=== PATIENT | female | born 1940 | race Caucasian/White ===

== ENCOUNTER → 2016-08-23 | Outpatient (CLI) | payer MEDICARE, BC ==
[2016-08-23 14:19] LABS: Hemoglobin A1C 6.7 % (4.2-6.1)
[2016-08-23 14:21] LABS: Creatine Kinase 27 U/L (30-135)
[2016-08-23 15:27] LABS: Vitamin B12 >1000 pg/mL
== END | disposition home or self-care (01) ==
LOC: LABWHC1 13:18
PROVIDERS: ATTEND Psychiatry & Neurology Neurology
DX: E11.9 Type 2 diabetes mellitus without complications (principal); M62.81 Muscle weakness (generalized); R25.1 Tremor, unspecified
CPT/HCPCS: 36415; 82550; 82607; 83036; 84439; 84443

== ENCOUNTER → 2016-10-14 | Outpatient (CLI) | payer MEDICARE, BC | END | disposition home or self-care (01) | LOC: LABWHC1 06:58 | PROVIDERS: ATTEND Internal Medicine Endocrinology, Diabetes & Metabolism | DX: E27.40 Unspecified adrenocortical insufficiency (principal) | CPT/HCPCS: 36415; 82533 ==

== ENCOUNTER → 2016-10-22 | Outpatient (CLI) | payer MEDICARE, BC ==
[2016-10-22 12:10] LABS: ALT 27 U/L (9-52); AST 27 U/L (14-36); Alkaline Phosphatase 81 U/L (38-126); Anion Gap 12 mmol/L; Blood Urea Nitrogen 21 mg/dL (7-17); Calcium 10.4 mg/dL (8.4-10.2); Carbon Dioxide 22 mmol/L (22-30); Chloride 105 mmol/L (98-107); Cholesterol 252 mg/dL (<200); Glucose 109 mg/dL (74-99); HDL Cholesterol 50 mg/dL (40-60); Non-African American GFR(MDRD) >60 (>60 ml/min/1.73 sqM); Potassium 4.1 mmol/L (3.5-5.1); Sodium 139 mmol/L (137-145); Total Bilirubin 0.6 mg/dL (0.2-1.3); Total Protein 7.7 g/dL (6.3-8.2); Triglycerides 136 mg/dL (<150)
[2016-10-22 13:40] LABS: Hemoglobin A1C 6.6 % (4.2-6.1)
== END ==
LOC: LABWHC1 10:11
PROVIDERS: ATTEND Internal Medicine Endocrinology, Diabetes & Metabolism
DX: E11.65 Type 2 diabetes mellitus with hyperglycemia (principal); E78.00 Pure hypercholesterolemia, unspecified
CPT/HCPCS: 36415; 80053; 80061; 82043; 83036

== ENCOUNTER 2016-10-26 08:04 | Day surgery (SDC) | payer MEDICARE, BC ==
[2016-10-25 09:55] VITALS: BMI 22.4
[~2016-10-26 08:04] MED LIST: HYDROmorphone 1 MG/ML 1 ML SYRINGE IVP PRN; LACTATED RINGERS 1,000 ML IV SCH; MIDAZOLAM 2 MG/2 ML VIAL IV PRN
[2016-10-26] MEDS: PHENYLEPHRINE 10% OPHTH DROPS 5 ML BTL OP ONE ×3 (08:31→08:37)
[2016-10-26] MEDS: CYCLOPENTOLATE 1% OPHTH SOLN 2 ML BTL OP ONE ×2 (08:40→08:46)
[2016-10-26 08:41] VITALS: RESP 16; TEMP 98.1
[2016-10-26] MEDS: LIDOCAINE 1% 20 ML VIAL (10MG/ML) FOR IV START INTRADERMA PRN ×2 (08:45→08:54)
[2016-10-26] MEDS: FLURBIPROFEN 0.03% OPHTH DROPS 2.5 ML BTL OP ONE ×3 (08:49→08:55)
[2016-10-26 08:59] LABS: Glucose,Whole Blood 105 mg/dL (75-99)
[2016-10-26] MEDS ORDERED: PROPOFOL 10 MG/ML 20 ML VIAL IV ONE (09:26)
[2016-10-26] MEDS ORDERED: BALANCED SALT IRRIG SOLN COMB2 15 ML IRRIG.SOLN INTRAOCULA ONE (09:42)
[2016-10-26] MEDS ORDERED: HYALURONATE SODIUM INTRAOCULAR 1 EACH SYRINGE (10MG/ML) INTRAOCULA ONE (09:42)
[2016-10-26] MEDS ORDERED: EPINEPHrine (PF) 0.5 ML in BALANCED SALT IRRIG SOLN COMB2 500 ML IRRIGATION ONE (09:43)
--- NOTE | 2016-10-26 09:49 | P.OP ---
Date of Procedure: 10/26/16 Procedure(s) Performed: PREOPERATIVE DIAGNOSIS: Cataract, left eye. POSTOPERATIVE DIAGNOSIS: Cataract, left eye. OPERATION: Phacoemulsification cataract, left eye. DESCRIPTION OF PROCEDURE: The patient was taken to the preoperative holding area. Intravenous Propofol was given so as to bring about adequate sedation. The following mixture was given for local anesthesia: 5 mL of 2% lidocaine, 5 mL of 0.75% Marcaine, and 1 mL of Wydase. Approximately 4 mL was injected in the retrobulbar space of the surgical eye. Additional 1 mL was then directed to the temporal area of the surgical eye. This was performed to allow adequate neurological block of the facial muscles. The patient was revived and then taken into the operative room. The patient was prepped and draped in the usual sterile manner for the operative eye. A lid speculum was put into position. The conjunctiva was resected back from the limbus in the 12 o'clock position. Bleeding was controlled with electrocautery. A #69 blade was then used and a half-thickness scleral incision approximately 1-mm posterior to the limbus was made on bare sclera. This was shelved in the clear cornea using a crescent knife. Next a 15-degree blade was used to make a stab incision at the 3 o' clock position at the corneolimbal interface. Keratome blade was then used and the superior wound was extended into the anterior chamber. Viscoelastic was injected into the anterior chamber and to maintain its form. Next, a cystotome was used and a continuous anterior capsulotomy was made without difficulty. Hydrodissection using a blunt cannula and BSS was performed. Phaco probe was then employed and a groove extending from 12 to 6 o'clock in the lens was created. A Santi wand was used through the stab incision so as to perform a divide and conquer technique. Next an irrigation aspiration probe was utilized and any residual cortex was removed from the eye. Again, viscoelastic was injected into the anterior chamber. An Maynor posterior chamber lens implant was placed in the cartridge and injected into the anterior chamber without difficulty. The SinEnerVaultey hook was utilized to spin the lens into position and this was again performed without any difficulty. The irrigation and aspiration probe was again employed and any residual viscoelastic was removed from the eye. Then BSS was injected into the limbal stab incision and the anterior chamber re-inflated. The conjunctiva was reapproximated using electrocautery. One drop of 0.25% Timoptic was placed over the corneal along with TobraDex ophthalmic ointment. Two sterile patches and a [place] eye shield were taped into position. The patient was transported to the recovery room in stable condition. Pathology: none sent Condition: stable Disposition: same day
[2016-10-26] MEDS ORDERED: hydrALAZINE HCL 20 MG/ML 1 ML VIAL IV ONE ×2 (09:58→10:20)
[2016-10-26 10:39] VITALS: BP 178/82; PULSE 77
[2016-10-26] MEDS ORDERED: BUPIVACAINE (PF) 0.75% 5 ML, LIDOCAINE 4% (PF) 5 ML, HYALURONIDASE, HUMAN RECOMB 150 UNIT MISCELLANE ONE ×3 (23:00)
[2016-10-26] MEDS ORDERED: GENTAMICIN/PREDNISOL AC OPHTH OINT 3.5GM OPHTHALMIC ONE (23:00)
[2016-10-26] MEDS ORDERED: TIMOLOL 0.5% OPHTH SOLN (PF) 0.2 ML DROPERETTE OP ONE (23:00)
== END 2016-10-26 10:53 | disposition home or self-care (01) ==
LOC: OR 08:04
PROVIDERS: ATTEND Ophthalmology
DX: H26.9 Unspecified cataract (principal); E11.9 Type 2 diabetes mellitus without complications; Z79.84 Long term (current) use of oral hypoglycemic drugs; M35.00 Sjogren syndrome, unspecified; M19.90 Unspecified osteoarthritis, unspecified site; I10 Essential (primary) hypertension; M79.7 Fibromyalgia; K21.9 Gastro-esophageal reflux disease without esophagitis; Z79.899 Other long term (current) drug therapy; Z88.5 Allergy status to narcotic agent; Z88.0 Allergy status to penicillin; Z88.2 Allergy status to sulfonamides; Z88.8 Allergy status to other drugs, medicaments and biological substances
CPT/HCPCS: 66984; V2632; J2001; J3470; J0360; J0171; J2704

== ENCOUNTER 2016-12-07 09:30 | Day surgery (SDC) | payer MEDICARE, BC ==
[2016-12-03 15:37] VITALS: BMI 22.1
[~2016-12-07 09:30] MED LIST changes: +DEXAMETHASONE SOD PHOSPHATE 10 MG/ML 1 ML VIAL IV ONE; +LIDOCAINE 1% 20 ML VIAL (10MG/ML) FOR IV START INTRADERMA PRN; +ONDANSETRON 4 MG/2 ML VIAL IVP ONE; +SCOPOLAMINE 1.5MG/72HR PATCH TRANSDERM ONE
[2016-12-07] MEDS: PHENYLEPHRINE 10% OPHTH DROPS 5 ML BTL OP ONE ×3 (10:30→10:49)
[2016-12-07] MEDS: FLURBIPROFEN 0.03% OPHTH DROPS 2.5 ML BTL OP ONE ×3 (10:33→10:52)
[2016-12-07] MEDS: CYCLOPENTOLATE 1% OPHTH SOLN 2 ML BTL OP ONE ×3 (10:36→10:55)
[2016-12-07 10:40] VITALS: TEMP 97.9
[2016-12-07] MEDS ORDERED: PROPOFOL 10 MG/ML 20 ML VIAL IV ONE (11:00)
[2016-12-07 11:01] LABS: Glucose,Whole Blood 98 mg/dL (75-99)
[2016-12-07] MEDS ORDERED: EPINEPHrine (PF) 0.5 ML in BALANCED SALT IRRIG SOLN COMB2 500 ML IRRIGATION ONE (11:03)
[2016-12-07] MEDS ORDERED: BALANCED SALT IRRIG SOLN COMB2 15 ML IRRIG.SOLN IRRIGATION ONE (11:05)
[2016-12-07] MEDS ORDERED: HYALURONATE SODIUM INTRAOCULAR 1 EACH SYRINGE (10MG/ML) INTRAOCULA ONE (11:05)
--- NOTE | 2016-12-07 11:24 | P.OP ---
Date of Procedure: 12/07/16 Procedure(s) Performed: PREOPERATIVE DIAGNOSIS: Cataract, right eye. POSTOPERATIVE DIAGNOSIS: Cataract, right eye. OPERATION: Phacoemulsification cataract, right eye. DESCRIPTION OF PROCEDURE: The patient was taken to the preoperative holding area. Intravenous Propofol was given so as to bring about adequate sedation. The following mixture was given for local anesthesia: 5 mL of 2% lidocaine, 5 mL of 0.75% Marcaine, and 1 mL of Wydase. Approximately 4 mL was injected in the retrobulbar space of the surgical eye. Additional 1 mL was then directed to the temporal area of the surgical eye. This was performed to allow adequate neurological block of the facial muscles. The patient was revived and then taken into the operative room. The patient was prepped and draped in the usual sterile manner for the operative eye. A lid speculum was put into position. The conjunctiva was resected back from the limbus in the 12 o'clock position. Bleeding was controlled with electrocautery. A #69 blade was then used and a half-thickness scleral incision approximately 1-mm posterior to the limbus was made on bare sclera. This was shelved in the clear cornea using a crescent knife. Next a 15-degree blade was used to make a stab incision at the 3 o' clock position at the corneolimbal interface. Keratome blade was then used and the superior wound was extended into the anterior chamber. Viscoelastic was injected into the anterior chamber and to maintain its form. Next, a cystotome was used and a continuous anterior capsulotomy was made without difficulty. Hydrodissection using a blunt cannula and BSS was performed. Phaco probe was then employed and a groove extending from 12 to 6 o'clock in the lens was created. A Santi wand was used through the stab incision so as to perform a divide and conquer technique. Next an irrigation aspiration probe was utilized and any residual cortex was removed from the eye. Again, viscoelastic was injected into the anterior chamber. An Maynor posterior chamber lens implant was placed in the cartridge and injected into the anterior chamber without difficulty. The SinSimpleey hook was utilized to spin the lens into position and this was again performed without any difficulty. The irrigation and aspiration probe was again employed and any residual viscoelastic was removed from the eye. Then BSS was injected into the limbal stab incision and the anterior chamber re-inflated. The conjunctiva was reapproximated using electrocautery. One drop of 0.25% Timoptic was placed over the corneal along with TobraDex ophthalmic ointment. Two sterile patches and a [place] eye shield were taped into position. The patient was transported to the recovery room in stable condition. Pathology: none sent Condition: stable Disposition: same day
[2016-12-07] MEDS ORDERED: ENALAPRILAT 1.25 MG/ML 1 ML VIAL IVP ONE (11:52)
[2016-12-07] MEDS ORDERED: hydrALAZINE HCL 20 MG/ML 1 ML VIAL IVP ONE ×3 (11:53→12:23)
[2016-12-07 12:44] VITALS: BP 193/90; PULSE 82; RESP 18
[2016-12-07] MEDS ORDERED: BUPIVACAINE (PF) 0.75% 5 ML, LIDOCAINE 4% (PF) 5 ML, HYALURONIDASE, HUMAN RECOMB 150 UNIT MISCELLANE ONE ×3 (23:00)
[2016-12-07] MEDS ORDERED: GENTAMICIN/PREDNISOL AC OPHTH OINT 3.5GM OPHTHALMIC ONE (23:00)
[2016-12-07] MEDS ORDERED: TIMOLOL 0.5% OPHTH SOLN (PF) 0.2 ML DROPERETTE OP ONE (23:00)
== END 2016-12-07 13:20 | disposition home or self-care (01) ==
LOC: OR 09:30
PROVIDERS: ATTEND Ophthalmology
DX: H26.9 Unspecified cataract (principal); M35.00 Sjogren syndrome, unspecified; I10 Essential (primary) hypertension; F32.9 Major depressive disorder, single episode, unspecified; K21.9 Gastro-esophageal reflux disease without esophagitis; Z79.899 Other long term (current) drug therapy; Z88.1 Allergy status to other antibiotic agents; Z88.5 Allergy status to narcotic agent; Z88.0 Allergy status to penicillin; Z88.2 Allergy status to sulfonamides
CPT/HCPCS: 66984; V2632; J2001; J3470; J0360; J0171; J2704

== ENCOUNTER → 2017-04-07 | Outpatient (CLI) | payer MEDICARE, BC ==
--- NOTE | 2017-04-12 07:56 | MM ---
Reason for exam: screening (asymptomatic). Last mammogram was performed 1 year and 3 months ago. History: Patient is postmenopausal. Family history of breast cancer in daughter and breast cancer in aunt at age 49. Took estrogen for 18 years. Took progesterone for 18 years. Physical Findings: A clinical breast exam by your physician is recommended on an annual basis and results should be correlated with mammographic findings. MG Screening Mammo w CAD Bilateral CC and MLO view(s) were taken. Prior study comparison: January 12, 2016, bilateral MG 3d screening mammo w/cad. January 02, 2015, bilateral MG screening mammo w CAD. The breast tissue is heterogeneously dense. This may lower the sensitivity of mammography. Finding: There are typically benign vascular calcifications in the posterior position of the right breast. No significant changes in finding since January 12, 2016 and January 02, 2015. ASSESSMENT: Benign, BI-RAD 2 RECOMMENDATION: Routine screening mammogram of both breasts in 1 year.
== END | disposition home or self-care (01) ==
LOC: RADMAMWWP 13:52
PROVIDERS: ATTEND Family Medicine
DX: Z12.31 Encounter for screening mammogram for malignant neoplasm of breast (principal)

== ENCOUNTER 2017-09-20 11:46 | Emergency (ER) | payer MEDICARE, BC ==
[2017-09-20 11:59] VITALS: RESP 18; TEMP 97.1
[2017-09-20] MEDS ORDERED: FAMOTIDINE 20 MG/2 ML VIAL IV STA (12:20)
[2017-09-20] MEDS ORDERED: LIDOCAINE VISCOUS 2% 15 ML CUP MUCOUS MEM ONE (12:20)
[2017-09-20] MEDS ORDERED: MAG HYDROX/AL HYDROX/SIMETH 30 ML CUP PO PRN (12:20)
[2017-09-20] MEDS ORDERED: SUCRALFATE 1 GM TAB PO STA (12:20)
[2017-09-20] MEDS ORDERED: ONDANSETRON 4 MG/2 ML VIAL IVP STA (12:20)
--- NOTE | 2017-09-20 12:26 | ED ---
General Adult HPI - General Chief complaint: Nausea/Vomiting/Diarrhea Stated complaint: Nausea/weak Time Seen by Provider: 09/20/17 12:03 Source: patient, family Mode of arrival: wheelchair Limitations: no limitations - History of Present Illness Initial comments: Patient is a 77-year-old female presents with a chief complaint of nausea and vomiting. This is been going on for 2 days. Patient cannot identify any inciting incident. She is here with her daughter who states that the patient has had numerous medication changes over the last 6 months, mainly concerned with depression. Patient was taking citalopram, was weaned off and started Cymbalta. There is no aggravating or alleviating factors to the patient's abdominal pain. Timing is been intermittent. The patient does complain of epigastric pain. The pain is nonradiating and feels a burning type pain. - Related Data Home Medications Medication Instructions Recorded Confirmed Omeprazole [PriLOSEC] 20 mg PO DAILY 08/19/15 09/20/17 Glucosam/Anselmo-Msm1/C/Cristóbal/Bosw 1 tab PO DAILY 10/25/16 09/20/17 [Glucosamine-Chondroitin Tablet] metFORMIN HCL [Glucophage] 500 mg PO AC-SUPPER 10/25/16 09/20/17 Ascorbic Acid [Vitamin C] 1,000 mg PO DAILY 09/20/17 09/20/17 Atorvastatin [Lipitor] 20 mg PO HS 09/20/17 09/20/17 Cholecalciferol [Vitamin D3] 1,000 unit PO DAILY 09/20/17 09/20/17 Citalopram Hydrobromide [CeleXA] 20 mg PO Q4D 09/20/17 09/20/17 Cyanocobalamin (Vitamin B-12) 1,000 mcg PO DAILY 09/20/17 09/20/17 [Vitamin B-12] Docusate [Colace] 100 mg PO DAILY 09/20/17 09/20/17 L.acidoph,Paracasei, B.lactis 1 cap PO DAILY 09/20/17 09/20/17 [Probiotic] Lisinopril 40 mg PO DAILY 09/20/17 09/20/17 Lysine 500 mg PO DAILY 09/20/17 09/20/17 Melatonin 10 mg PO HS 09/20/17 09/20/17 Ondansetron [Zofran ODT] 8 mg PO Q8H PRN 09/20/17 09/20/17 Vitamin B Complex 1 cap PO DAILY 09/20/17 09/20/17 amLODIPine [Norvasc] 2.5 mg PO HS 09/20/17 09/20/17 Previous Rx's Medication Instructions Recorded Cephalexin [Keflex] 500 mg PO Q12HR #19 cap 09/20/17 Ondansetron Odt [Zofran Odt] 4 mg PO Q8HR PRN #20 tab 09/20/17 Allergies Allergy/AdvReac Type Severity Reaction Status Date / Time sulfamethoxazole Allergy Unknown Nausea & Verified 09/20/17 12:24 [From Bactrim] Vomiting trimethoprim [From Bactrim] Allergy Unknown Nausea & Verified 09/20/17 12:24 Vomiting Tetracyclines Allergy Nausea & Verified 09/20/17 12:24 Vomiting amoxicillin trihydrate AdvReac Nausea & Verified 09/20/17 12:24 [From Augmentin] Vomiting codeine AdvReac Nausea & Verified 09/20/17 12:24 Vomiting potassium clavulanate AdvReac Nausea & Verified 09/20/17 12:24 [From Augmentin] Vomiting tetracycline AdvReac Nausea & Verified 09/20/17 12:24 Vomiting Review of Systems ROS Statement: Those systems with pertinent positive or pertinent negative responses have been documented in the HPI. ROS Other: All systems not noted in ROS Statement are negative. Constitutional: Reports: chills Respiratory: Reports: cough Gastrointestinal: Reports: abdominal pain, nausea, vomiting, diarrhea Genitourinary: Reports: frequency Psychiatric: Reports: anxiety Past Medical History Past Medical History: Diabetes Mellitus, Eye Disorder, GERD/Reflux, Hypertension , Osteoarthritis (OA), Pulmonary Embolus (PE) Additional Past Medical History / Comment(s): Shogran's, tremors, hx of pneumonia or bronchitis in Aug 2016. Current right eye cataract. Thin skin that bruises very easily. Steroid use last in the Fall of 2015. History of Any Multi-Drug Resistant Organisms: None Reported Past Surgical History: Tubal Ligation Additional Past Surgical History / Comment(s): Left cataract surgery. Past Anesthesia/Blood Transfusion Reactions: Postoperative Nausea & Vomiting ( PONV) Past Psychological History: Anxiety Smoking Status: Never smoker Past Alcohol Use History: None Reported Past Drug Use History: None Reported - Past Family History Mother Family Medical History: Diabetes Mellitus, Hyperlipidemia, Myocardial Infarction ([place]) Father Family Medical History: Cancer Additional Family Medical History / Comment(s): SKIN CANCER Daughter(s) Family Medical History: Cancer Additional Family Medical History / Comment(s): Breast Cancer General Exam Limitations: no limitations General appearance: alert, in no apparent distress Head exam: Present: atraumatic, normocephalic Eye exam: Present: normal appearance ENT exam: Present: normal exam Respiratory exam: Present: normal lung sounds bilaterally, respiratory distress. Absent: wheezes Cardiovascular Exam: Present: regular rate, normal rhythm GI/Abdominal exam: Present: soft, tenderness (Epigastric tenderness on palpation ). Absent: distended Rectal exam: Present: deferred Extremities exam: Absent: pedal edema Back exam: Absent: CVA tenderness (R), CVA tenderness (L) Neurological exam: Present: alert, oriented X3 Psychiatric exam: Present: normal mood, anxious Skin exam: Present: warm, dry, intact Course Vital Signs 09/20/17 09/20/17 09/20/17 11:53 13:45 15:49 Temperature 97.1 F L Pulse Rate 90 82 74 Respiratory 18 18 18 Rate Blood Pressure 174/75 212/94 226/97 O2 Sat by Pulse 100 100 100 Oximetry Medical Decision Making - Medical Decision Making Patient presents with a chief complaint of nausea and vomiting 2 days. Patient complains also of epigastric burning pain. She denies chest pain or shortness of breath. Patient is however diabetic, hypertensive, and has high cholesterol. Patient will be evaluated with basic, abdominal, and cardiac labs. We'll send a urinalysis to rule out UTI as cause of nausea and vomiting. Patient medicated with GI cocktail, and Zofran. EKG performed at 1312 shows normal sinus rhythm with a rate of 77 bpm. EKG is otherwise nonspecific. 5:23 PM Lab evaluation of this patient is unremarkable. Troponins are negative 2. Urinalysis does offer evidence of infection, patient was given her first dose of Keflex in the emergency department. A urine culture was sent. On reevaluation, patient states she is feeling better. Her nausea has subsided and she is taking by mouth intake. Patient was given her home blood pressure medications. At this time, patient is stable for discharge. She was instructed to follow up with primary care in 1-2 days or return to the emergency department in 12-24 hours if her symptoms are worse. - Lab Data Result diagrams: 09/20/17 12:31 09/20/17 12:31 Lab Results 09/20/17 09/20/17 09/20/17 Range/Units 12:31 12:31 12:31 WBC 4.2 (3.8-10.6) k/uL RBC 4.20 (3.80-5.40) m/uL Hgb 11.6 (11.4-16.0) gm/dL Hct 36.8 (34.0-46.0) % MCV 87.7 (80.0-100.0) fL MCH 27.6 (25.0-35.0) pg MCHC 31.5 (31.0-37.0) g/dL RDW 13.5 (11.5-15.5) % Plt Count 329 (150-450) k/uL Neutrophils % 58 % Lymphocytes % 25 % Monocytes % 13 % Eosinophils % 1 % Basophils % 1 % Neutrophils # 2.5 (1.3-7.7) k/uL Lymphocytes # 1.0 (1.0-4.8) k/uL Monocytes # 0.5 (0-1.0) k/uL Eosinophils # 0.0 (0-0.7) k/uL Basophils # 0.0 (0-0.2) k/uL Hypochromasia Slight Sodium 138 (137-145) mmol/L Potassium 4.4 (3.5-5.1) mmol/L Chloride 103 (98-107) mmol/L Carbon Dioxide 21 L (22-30) mmol/L Anion Gap 14 mmol/L BUN 14 (7-17) mg/dL Creatinine 1.04 (0.52-1.04) mg/dL Est GFR (MDRD) Af Amer >60 (>60 ml/min/1.73 sqM) Est GFR (MDRD) Non-Af 52 (>60 ml/min/1.73 sqM) Glucose 159 H (74-99) mg/dL Calcium 11.2 H (8.4-10.2) mg/dL Total Bilirubin 0.5 (0.2-1.3) mg/dL AST 45 H (14-36) U/L ALT 42 (9-52) U/L Alkaline Phosphatase 133 H (38-126) U/L Troponin I <0.012 (0.000-0.034) ng/mL Total Protein 7.6 (6.3-8.2) g/dL Albumin 4.3 (3.5-5.0) g/dL Lipase 73 (23-300) U/L Urine Color Urine Appearance (Clear) Urine pH (5.0-8.0) Ur Specific [place] (1.001-1.035) Urine Protein (Negative) Urine Glucose (UA) (Negative) Urine Ketones (Negative) Urine Blood (Negative) Urine Nitrite (Negative) Urine Bilirubin (Negative) Urine Urobilinogen (<2.0) mg/dL Ur Leukocyte Esterase (Negative) Urine RBC (0-5) /hpf Urine WBC (0-5) /hpf Ur Squamous Epith Cells (0-4) /hpf Amorphous Sediment (None) /hpf Urine Bacteria (None) /hpf Hyaline Casts (0-2) /lpf Urine Mucus (None) /hpf Influenza Type A RNA (Not Detectd) Influenza Type B (PCR) (Not Detectd) 09/20/17 09/20/17 09/20/17 Range/Units 12:41 12:41 14:34 WBC (3.8-10.6) k/uL RBC (3.80-5.40) m/uL Hgb (11.4-16.0) gm/dL Hct (34.0-46.0) % MCV (80.0-100.0) fL MCH (25.0-35.0) pg MCHC (31.0-37.0) g/dL RDW (11.5-15.5) % Plt Count (150-450) k/uL Neutrophils % % Lymphocytes % % Monocytes % % Eosinophils % % Basophils % % Neutrophils # (1.3-7.7) k/uL Lymphocytes # (1.0-4.8) k/uL Monocytes # (0-1.0) k/uL Eosinophils # (0-0.7) k/uL Basophils # (0-0.2) k/uL Hypochromasia Sodium (137-145) mmol/L Potassium (3.5-5.1) mmol/L Chloride (98-107) mmol/L Carbon Dioxide (22-30) mmol/L Anion Gap mmol/L BUN (7-17) mg/dL Creatinine (0.52-1.04) mg/dL Est GFR (MDRD) Af Amer (>60 ml/min/1.73 sqM) Est GFR (MDRD) Non-Af (>60 ml/min/1.73 sqM) Glucose (74-99) mg/dL Calcium (8.4-10.2) mg/dL Total Bilirubin (0.2-1.3) mg/dL AST (14-36) U/L ALT (9-52) U/L Alkaline Phosphatase (38-126) U/L Troponin I 0.017 (0.000-0.034) ng/mL Total Protein (6.3-8.2) g/dL Albumin (3.5-5.0) g/dL Lipase (23-300) U/L Urine Color Yellow Urine Appearance Turbid H (Clear) Urine pH 7.5 (5.0-8.0) Ur Specific [place] 1.009 (1.001-1.035) Urine Protein 2+ H (Negative) Urine Glucose (UA) Negative (Negative) Urine Ketones 1+ H (Negative) Urine Blood Negative (Negative) Urine Nitrite Negative (Negative) Urine Bilirubin Negative (Negative) Urine Urobilinogen <2.0 (<2.0) mg/dL Ur Leukocyte Esterase Large H (Negative) Urine RBC 9 H (0-5) /hpf Urine WBC 46 H (0-5) /hpf Ur Squamous Epith Cells 1 (0-4) /hpf Amorphous Sediment Moderate H (None) /hpf Urine Bacteria Rare H (None) /hpf Hyaline Casts 26 H (0-2) /lpf Urine Mucus Rare H (None) /hpf Influenza Type A RNA Not Detected (Not Detectd) Influenza Type B (PCR) Not Detected (Not Detectd) Disposition Clinical Impression: Urinary tract infection, Nausea and vomiting Disposition: HOME SELF-CARE Condition: Good Instructions: Urinary Tract Infection in Women (ED) Prescriptions: Cephalexin [Keflex] 500 mg PO Q12HR #19 cap Ondansetron Odt [Zofran Odt] 4 mg PO Q8HR PRN #20 tab PRN Reason: Nausea Referrals: Ricardo Kirkland III, MD [Primary Care Provider] - 1-2 days
[2017-09-20 12:41] LABS: Basophils % (A) 1 %; Eosinophils % (A) 1 %; HCT 36.8 % (34.0-46.0); HGB 11.6 gm/dL (11.4-16.0); Hypochromasia Slight; Lymphocytes % (A) 25 %; MCH 27.6 pg (25.0-35.0); MCHC 31.5 g/dL (31.0-37.0); MCV 87.7 fL (80.0-100.0); Mean Platelet Volume 6.8; Monocytes # (A) 0.5 k/uL (0-1.0); Monocytes % (A) 13 %; Neutrophils # (A) 2.5 k/uL (1.3-7.7); Neutrophils % (A) 58 %; Platelet Count 329 k/uL (150-450); RDW 13.5 % (11.5-15.5); WBC 4.2 k/uL (3.8-10.6)
[2017-09-20 12:56] LABS: ALT 42 U/L (9-52); AST 45 U/L (14-36); Albumin 4.3 g/dL (3.5-5.0); Alkaline Phosphatase 133 U/L (38-126); Anion Gap 14 mmol/L; Blood Urea Nitrogen 14 mg/dL (7-17); Calcium 11.2 mg/dL (8.4-10.2); Carbon Dioxide 21 mmol/L (22-30); Chloride 103 mmol/L (98-107); Glucose 159 mg/dL (74-99); Lipase 73 U/L (23-300); Potassium 4.4 mmol/L (3.5-5.1); Sodium 138 mmol/L (137-145); Total Bilirubin 0.5 mg/dL (0.2-1.3); Total Protein 7.6 g/dL (6.3-8.2)
[2017-09-20 13:09] LABS: Amorphous Sediment,Urine Moderate /hpf; Appearance,Urine Turbid (Clear); Bacteria,Urine Rare /hpf; Bilirubin,Urine Negative (Negative); Blood,Urine Negative (Negative); Color,Urine Yellow; Glucose,Urine (UA) Negative (Negative); Hyaline Casts,Urine 26 /lpf (0-2); Ketones,Urine 1+ (Negative); Leukocyte Esterase,Urine Large (Negative); Mucus,Urine Rare /hpf; Nitrite,Urine Negative (Negative); PH, Urine 7.5 (5.0-8.0); Protein,Urine 2+ (Negative); RBC,Urine 9 /hpf (0-5); Specific Gravity,Urine 1.009 (1.001-1.035); Squamous Epithelial Cell,Urine 1 /hpf (0-4); Urobilinogen,Urine <2.0 mg/dL (<2.0); WBC,Urine 46 /hpf (0-5)
--- NOTE | 2017-09-20 13:12 | XR ---
EXAMINATION TYPE: XR chest 2V DATE OF EXAM: 09/20/2017 COMPARISON: Prior chest x-ray 08/19/2015 HISTORY: Pain, medicine reaction TECHNIQUE: Frontal and lateral views of the chest are obtained. FINDINGS: There is no focal air space opacity, pleural effusion, or pneumothorax seen. The cardiac silhouette size is within normal limits. The osseous structures are intact. Arthropathy noted in th e acromioclavicular joints. IMPRESSION: No acute cardiopulmonary process.
[2017-09-20] MEDS ORDERED: CEPHALEXIN 500 MG CAP PO STA (13:25)
[2017-09-20] MEDS ORDERED: amLODIPine 5 MG TAB PO STA (16:55)
[2017-09-20 17:59] VITALS: PULSE 82
[2017-09-20 18:09] VITALS: BP 193/91
== END 2017-09-20 18:09 | disposition home or self-care (01) ==
LOC: EC 11:46
DX: N39.0 Urinary tract infection, site not specified (principal); R11.2 Nausea with vomiting, unspecified; E11.9 Type 2 diabetes mellitus without complications; K21.9 Gastro-esophageal reflux disease without esophagitis; I10 Essential (primary) hypertension; F41.9 Anxiety disorder, unspecified; Z86.711 Personal history of pulmonary embolism; Z98.51 Tubal ligation status; Z79.84 Long term (current) use of oral hypoglycemic drugs; Z79.899 Other long term (current) drug therapy; Z88.0 Allergy status to penicillin; Z88.1 Allergy status to other antibiotic agents; Z88.2 Allergy status to sulfonamides; Z88.5 Allergy status to narcotic agent
CPT/HCPCS: 36415; 93005; 80053; 83690; 84484; 85025; 81001; 87086; 87502; 71046; 99284; 96374; 96375; J2405

== ENCOUNTER → 2018-12-27 | Outpatient (CLI) | payer MEDICARE ==
--- NOTE | 2018-12-27 17:16 | XR ---
EXAMINATION TYPE: XR chest 2V DATE OF EXAM: 12/27/2018 COMPARISON: 09/20/2017 HISTORY: Epigastric pain TECHNIQUE: Frontal and lateral views of the chest are obtained. FINDINGS: Heart and mediastinum are normal. Lungs are clear. Diaphragm is normal. Bony thorax appear s normal. IMPRESSION: Normal chest. No change.
== END ==
LOC: LABWHC1 16:29
PROVIDERS: ATTEND Nurse Practitioner Family
DX: R07.9 Chest pain, unspecified (principal)
CPT/HCPCS: 36415; 71046; 85379

== ENCOUNTER 2019-12-03 11:50 | Emergency (ER) | payer MEDICARE ==
--- NOTE | 2019-12-03 12:34 | ED ---
Lower Extremity Injury HPI - General Chief Complaint: Extremity Injury, Lower Stated Complaint: lt hip pain Time Seen by Provider: 12/03/19 12:00 Source: patient, family Mode of arrival: wheelchair Limitations: physical limitation - History of Present Illness Initial Comments: Patient is a 79-year-old female presenting to emergency Department with compl aints of left hip pain for the past 2-3 days. Patient states 4 days ago she was doing exercises at home which she does every now and again. Patient states the next day she felt a little soreness but was still able to ambulate without difficulty. Patient states the last 2 days she has been having increase in pain in her left hip going into her left gluteal muscle. She is also been needing help of a walker to walk to the restroom. Patient denies any falls or trauma. She denies any previous surgeries to her left hip or back. She denies any recent fever, chills. She has no other complaints at this time. - Related Data Home Medications Medication Instructions Recorded Confirmed Omeprazole [PriLOSEC] 20 mg PO DAILY 08/19/15 09/20/17 Glucosam/Anselmo-Msm1/C/Cristóbal/Bosw 1 tab PO DAILY 10/25/16 09/20/17 [Glucosamine-Chondroitin Tablet] metFORMIN HCL [Glucophage] 500 mg PO AC-SUPPER 10/25/16 09/20/17 Ascorbic Acid [Vitamin C] 1,000 mg PO DAILY 09/20/17 09/20/17 Atorvastatin [Lipitor] 20 mg PO HS 09/20/17 09/20/17 Cholecalciferol [Vitamin D3] 1,000 unit PO DAILY 09/20/17 09/20/17 Citalopram Hydrobromide [CeleXA] 20 mg PO Q4D 09/20/17 09/20/17 Cyanocobalamin (Vitamin B-12) 1,000 mcg PO DAILY 09/20/17 09/20/17 [Vitamin B-12] Docusate [Colace] 100 mg PO DAILY 09/20/17 09/20/17 L.acidoph,Paracasei, B.lactis 1 cap PO DAILY 09/20/17 09/20/17 [Probiotic] Lisinopril 40 mg PO DAILY 09/20/17 09/20/17 Lysine 500 mg PO DAILY 09/20/17 09/20/17 Melatonin 10 mg PO HS 09/20/17 09/20/17 Ondansetron [Zofran ODT] 8 mg PO Q8H PRN 09/20/17 09/20/17 Vitamin B Complex 1 cap PO DAILY 09/20/17 09/20/17 amLODIPine [Norvasc] 2.5 mg PO HS 09/20/17 09/20/17 Previous Rx's Medication Instructions Recorded Cephalexin [Keflex] 500 mg PO Q12HR #19 cap 09/20/17 Ondansetron Odt [Zofran Odt] 4 mg PO Q8HR PRN #20 tab 09/20/17 Allergies Allergy/AdvReac Type Severity Reaction Status Date / Time sulfamethoxazole Allergy Unknown Nausea & Verified 09/20/17 12:24 [From Bactrim] Vomiting trimethoprim [From Bactrim] Allergy Unknown Nausea & Verified 09/20/17 12:24 Vomiting Tetracyclines Allergy Nausea & Verified 09/20/17 12:24 Vomiting amoxicillin trihydrate AdvReac Nausea & Verified 09/20/17 12:24 [From Augmentin] Vomiting azithromycin [From Zithromax] AdvReac Nausea & Verified 12/03/19 11:59 Vomiting codeine AdvReac Nausea & Verified 09/20/17 12:24 Vomiting potassium clavulanate AdvReac Nausea & Verified 09/20/17 12:24 [From Augmentin] Vomiting tetracycline AdvReac Nausea & Verified 09/20/17 12:24 Vomiting Review of Systems ROS Statement: Those systems with pertinent positive or pertinent negative responses have been documented in the HPI. ROS Other: All systems not noted in ROS Statement are negative. Past Medical History Past Medical History: Diabetes Mellitus, Eye Disorder, GERD/Reflux, Hypertension, Osteoarthritis (OA), Pulmonary Embolus (PE) Additional Past Medical History / Comment(s): Shogran's, tremors, hx of pneumonia or bronchitis in Aug 2016. bilat eye cataract. Thin skin that bruises very easily. Steroid use last in the Fall of 2015. History of Any Multi-Drug Resistant Organisms: None Reported Past Surgical History: Tubal Ligation Additional Past Surgical History / Comment(s): bilat cataract surgery. Past Anesthesia/Blood Transfusion Reactions: Postoperative Nausea & Vomiting (PONV) Past Psychological History: Anxiety Smoking Status: Never smoker Past Alcohol Use History: None Reported Past Drug Use History: None Reported - Past Family History Mother Family Medical History: Diabetes Mellitus, Hyperlipidemia, Myocardial Infarction ([place]) Father Family Medical History: Cancer Additional Family Medical History / Comment(s): SKIN CANCER Daughter(s) Family Medical History: Cancer Additional Family Medical History / Comment(s): Breast Cancer General Exam - General Exam Comments Initial Comments: GENERAL: Well-appearing, well-nourished and in no acute distress. HEAD: Atraumatic, normocephalic. EYES: Pupils equal round and reactive to light, extraocular movements intact, sclera anicteric, conjunctiva are normal. ENT: TMs normal, nares patent, oropharynx clear without exudates. Moist mucous membranes. NECK: Normal range of motion, supple without lymphadenopathy or JVD. LUNGS: Breath sounds clear to auscultation bilaterally and equal. No wheezes rales or rhonchi. HEART: Regular rate and rhythm without murmurs, rubs or gallops. ABDOMEN: Soft, nontender, normoactive bowel sounds. No guarding, no rebound. No masses appreciated. : Deferred EXTREMITIES: Mild pain to palpation of the lateral aspect of the left hip and into the gluteal area. Patient has full range of motion of the left hip, mild pain with external rotation. No swelling or erythema of the left lower extremity. She is neurovascular intact. NEUROLOGICAL: Normal speech, normal gait. PSYCH: Normal mood, normal affect. SKIN: Warm, Dry, normal turgor, no rashes or lesions noted. Limitations: physical limitation Course Vital Signs 12/03/19 11:55 Temperature 98.4 F Pulse Rate 82 Respiratory 18 Rate Blood Pressure 181/96 O2 Sat by Pulse 98 Oximetry Medical Decision Making - Medical Decision Making Patient is a 79-year-old female presenting with left hip pain 2 days. She denies any falls or injuries. The pain started after doing some at home exercises. She is neurovascular intact, no signs of infection. X-rays reveal no acute fractures dislocations. I discussed with patient this is most likely muscle related and/or mild sciatica. Patient should use ice and/or heat to the area as well as gentle stretching. Patient will use a walker to help walk until she her symptoms have improved. Patient and patient's daughter is in agreement this plan of care. Return parameters were discussed with the patient and she verbalized understanding. Case discussed with Dr. Caro. Disposition Clinical Impression: Left hip pain, Left sided sciatica Disposition: HOME SELF-CARE Condition: Stable Instructions (If sedation given, give patient instructions): Hip Pain (ED) Additional Instructions: Please return to the Emergency Department if symptoms worsen or any other concerns. Use heat and/or ice to the area as well as gentle stretching. Use walker to aid with walking until symptoms improved. Follow-up with PCP if symptoms persist. Is patient prescribed a controlled substance at d/c from ED?: No Referrals: Ricardo Kirkland III, MD [Primary Care Provider] - 1-2 days
--- NOTE | 2019-12-03 13:02 | XR ---
EXAMINATION TYPE: XR Hip Complete LT DATE OF EXAM: 12/03/2019 COMPARISON: NONE HISTORY: 79-year-old female with pain TECHNIQUE: 2 views FINDINGS: Hip joint space is relatively maintained. Left-sided pelvic phlebolith. No acute fracture, subluxatio n, dislocation. Osteopenia. IMPRESSION: Osteopenia. No acute osseous abnormality seen.
[2019-12-03 13:55] VITALS: BP 182/95; PULSE 75; RESP 16; TEMP 98
== END 2019-12-03 13:58 | disposition home or self-care (01) ==
LOC: EC 11:50
DX: M54.32 Sciatica, left side (principal); E11.9 Type 2 diabetes mellitus without complications; K21.9 Gastro-esophageal reflux disease without esophagitis; I10 Essential (primary) hypertension; M19.90 Unspecified osteoarthritis, unspecified site; F41.9 Anxiety disorder, unspecified; Z79.84 Long term (current) use of oral hypoglycemic drugs; Z79.899 Other long term (current) drug therapy; Z79.1 Long term (current) use of non-steroidal anti-inflammatories (NSAID); Z88.2 Allergy status to sulfonamides; Z88.1 Allergy status to other antibiotic agents; Z88.0 Allergy status to penicillin; Z88.5 Allergy status to narcotic agent
CPT/HCPCS: 73502; 99283

== ENCOUNTER → 2020-03-26 | Outpatient (CLI) | payer MEDICARE ==
[2020-03-26 12:37] LABS: Basophils # (A) 0.1 k/uL (0-0.2); Basophils % (A) 1 %; Eosinophils # (A) 0.1 k/uL (0-0.7); Eosinophils % (A) 1 %; HCT 38.4 % (34.0-46.0); Hypochromasia Slight; Lymphocytes # (A) 1.5 k/uL (1.0-4.8); Lymphocytes % (A) 24 %; MCH 29.2 pg (25.0-35.0); MCHC 31.2 g/dL (31.0-37.0); MCV 93.7 fL (80.0-100.0); Mean Platelet Volume 8.5; Monocytes # (A) 0.5 k/uL (0-1.0); Monocytes % (A) 8 %; Neutrophils # (A) 4.3 k/uL (1.3-7.7); Neutrophils % (A) 65 %; Platelet Count 163 k/uL (150-450); RDW 13.4 % (11.5-15.5); WBC 6.6 k/uL (3.8-10.6)
[2020-03-26 12:48] LABS: Calcium 10.8 mg/dL (8.4-10.2); Potassium 5.1 mmol/L (3.5-5.1)
[2020-03-26 12:53] LABS: Appearance,Urine Cloudy (Clear); Bacteria,Urine Rare /hpf; Bilirubin,Urine Negative (Negative); Blood,Urine Negative (Negative); Color,Urine Yellow; Glucose,Urine (UA) Negative (Negative); Hyaline Casts,Urine 14 /lpf (0-2); Ketones,Urine Negative (Negative); Leukocyte Esterase,Urine Large (Negative); Mucus,Urine Rare /hpf; Nitrite,Urine Positive (Negative); PH, Urine 6.5 (5.0-8.0); Protein,Urine Trace (Negative); RBC,Urine 5 /hpf (0-5); Specific Gravity,Urine 1.019 (1.001-1.035); Squamous Epithelial Cell,Urine 2 /hpf (0-4); Urobilinogen,Urine <2.0 mg/dL (<2.0); WBC,Urine >182 /hpf (0-5)
[2020-03-26 12:57] LABS: Prothrombin Time 10.3 sec (9.0-12.0)
[2020-03-26 13:00] LABS: Partial Thromboplastin Time 21.8 sec (22.0-30.0)
--- NOTE | 2020-03-26 13:08 | XR ---
EXAMINATION TYPE: XR chest 2V DATE OF EXAM: 03/26/2020 COMPARISON: 12/27/2018 TECHNIQUE: PA and lateral views submitted. HISTORY: Pain FINDINGS: The lungs are clear and there is no pneumothorax, pleural effusion, or focal pneumonia. Heart size normal. No overt failure. Biapical pleural thickening. Hypertrophic and degenerative change of the sp ine. Hyperinflation suggests COPD. IMPRESSION: 1. No acute process.
== END | disposition home or self-care (01) ==
LOC: LABPAT 11:34
PROVIDERS: ATTEND Orthopaedic Surgery Orthopaedic Surgery of the Spine
DX: Z01.818 Encounter for other preprocedural examination (principal); M51.26 Other intervertebral disc displacement, lumbar region
CPT/HCPCS: 71046; 80048; 81001; 85025; 85610; 85730; 93005

== ENCOUNTER 2020-04-16 05:54 | Day surgery (SDC) | payer MEDICARE ==
[2020-04-08 14:20] VITALS: BMI 24.7
[~2020-04-16 05:54] MED LIST changes: -DEXAMETHASONE SOD PHOSPHATE 10 MG/ML 1 ML VIAL IV ONE; +FAMOTIDINE 20 MG/2 ML VIAL IV PRN; +HYDROmorphone 0.5 MG/0.5 ML SYRINGE IVP PRN; -HYDROmorphone 1 MG/ML 1 ML SYRINGE IVP PRN; -LACTATED RINGERS 1,000 ML IV SCH; +LIDOCAINE 1% (10MG/ML) FOR IV START INTRADERMA PRN; -LIDOCAINE 1% 20 ML VIAL (10MG/ML) FOR IV START INTRADERMA PRN; -MIDAZOLAM 2 MG/2 ML VIAL IV PRN; -ONDANSETRON 4 MG/2 ML VIAL IVP ONE; +ONDANSETRON 4 MG/2 ML VIAL IVP PRN; -SCOPOLAMINE 1.5MG/72HR PATCH TRANSDERM ONE; +ceFAZolin 1,000 MG in SODIUM CHLORIDE 0.9% IRRIGATIO 1,000 ML IRRIGATION ONE
[2020-04-16 06:30] LABS: Glucose,Whole Blood 132 mg/dL (75-99)
[2020-04-16] MEDS: LACTATED RINGERS 1,000 ML IV SCH ×3 (06:31→20:41)
[2020-04-16] MEDS ORDERED: LIDOCAINE 1%-EPI 1:100,000 20 ML VIAL SQ ONE ×4 (06:54→07:34)
[2020-04-16] MEDS ORDERED: BUPIVACAINE (PF) 0.5% 30 ML VIAL SQ ONE ×4 (06:54→07:34)
[2020-04-16] MEDS ORDERED: LIDOCAINE 1% INJ 10MG/ML (20 ML MDV) ONE (06:57)
[2020-04-16] MEDS ORDERED: SUCCINYLCHOLINE CHLORIDE 100 MG/5 ML SYR IV ONE (06:57)
[2020-04-16] MEDS ORDERED: ePHEDrine SULFATE/0.9% NACL/PF 50 MG/5 ML SYRINGE IV ONE (06:57)
[2020-04-16] MEDS ORDERED: fentaNYL (PF) 50 MCG/ML 2 ML AMP ONE (06:57)
[2020-04-16] MEDS ORDERED: MIDAZOLAM 2 MG/2 ML VIAL ONE (06:57)
[2020-04-16] MEDS ORDERED: ONDANSETRON 4 MG/2 ML VIAL ONE (06:57)
[2020-04-16] MEDS ORDERED: PROPOFOL 10 MG/ML 20 ML VIAL IV ONE (06:57)
[2020-04-16] MEDS ORDERED: GELATIN SPONGE,ABSORB (LARGE) 1 EACH SPONGE TOPICAL ONE ×2 (07:22→07:34)
[2020-04-16] MEDS ORDERED: methylPREDNISolone ACETATE 80 MG/ML 1 ML VIAL INJ ONE ×2 (07:22→08:15)
[2020-04-16] MEDS ORDERED: THROMBIN (BOVINE) 5,000 UNIT VIAL TOPICAL ONE ×2 (07:23→07:34)
[2020-04-16] MEDS ORDERED: LACTATED RINGERS 1,000 ML IV ONE (08:22)
[2020-04-16] MEDS ORDERED: IBUPROFEN 600 MG TAB PO PRN (08:41)
[2020-04-16] MEDS ORDERED: KETOROLAC 15 MG/ML 1 ML VIAL IVP PRN (08:41)
[2020-04-16] MEDS ORDERED: ONDANSETRON 4 MG/2 ML VIAL IVP PRN (08:41)
[2020-04-16] MEDS ORDERED: HYDROmorphone 0.5 MG/0.5 ML SYRINGE IVP PRN (08:41)
[2020-04-16] MEDS ORDERED: BENZOCAINE/MENTHOL LOZENG 1 EACH LOZENGE MUCOUS MEM PRN (08:41)
--- NOTE | 2020-04-16 08:49 | P.OP ---
Date of Procedure: 04/16/20 Preoperative Diagnosis: Herniated nucleus pulposis L3 4 with extruded fragment behind L3, left lower extremity radiculopathy, left lower extremity weakness, low back pain, degenerative disc disease Postoperative Diagnosis: same Anesthesia: GETA Pathology: none sent Condition: stable Disposition: PACU Description of Procedure: BRIEF OPERATIVE NOTE Preoperative Diagnosis:Herniated nucleus pulposis L3 4 with extruded fragment behind L3, left lower extremity radiculopathy, left lower extremity weakness, low back pain, degenerative disc disease Postoperative Diagnosis:Herniated nucleus pulposis L3 4 with extruded fragment behind L3, left lower extremity radiculopathy, left lower extremity weakness, low back pain, degenerative disc disease Procedure: Laminectomy and decompressionL3 4 Discectomy for decompressionL3 4 Surgeon: Dr. Antunez Service Trainer: Franklin Chris is present throughout the entire the case persistence during positioning, dissection, exposure, visualization, and all crucial elements of the case as well as closure. Anesthesia: General anesthesia Estimated blood loss:approximately 75 mL Complications: None apparent Components implanted:none Disposition: To recovery room in good stable condition. OPERATIVE INDICATIONS The patient has been having issues in their lower back and lower extremities. the patient was found have a very large disc herniation at L3 4 with an extruded fragment. The fragment had migrated cephalad behind L3 vertebrae on the left. She had severe pain at her back and her left lower extremity and was having weakness at her left lower extremity which correlated well with her imaging findings. The patient has been through conservative treatment.she is not having any benefit despite aggressive conservative treatment. She continue to have further disability and debility due to the disc herniation in her lower extremity issues. We discussed various treatment options including surgery, and the patient wishes to proceed with surgery We discussed the risk, patient's alternatives and benefits of surgery including but not limited to, risk of bleeding risk of infection, risk of need for further surgery, risk of decreased, loss of motion, loss of function, nerve damage, paralysis, heart attack, blindness and . OPERATIVE SUMMARY After discussing all the risks, patient alternatives and benefits at length, the patient elected to proceed with surgical intervention, signed informed consent, and presented for their procedure. The patient was [facility] and [facility] and the surgical site was marked. The patient was given antibiotics and brought to the operating room. The patient was sedated and intubated by anesthesia in standard fashion. The patient was positioned on to the operating room table in a prone position on the appropriate frame which was well-padded and well molded. We were careful to pad any bony prominences and pressure points. We were careful to maintain the patient's cervical spine and good neutral alignment and position throughout. The patient was prepped and draped in a normal standard fashion. An appropriate timeout and keystone protocol performed. We were able to proceed with the surgery. Fluoroscopy was utilized to establish the appropriate level. The local wound area was infiltrated with local anesthetic. An incision was made at the midline longitudinally over the appropriate levelsat L3 4. Dissection was taken down subcutaneously to the level of the fascia which was split midline. Dissection was taken over the lamina. Intraoperative fluoroscopy was taken which showed a marker at the appropriate levelof L3 4. With the appropriate level positively confirmed, we were able to proceed with laminectomy. The wound was copiously irrigated and suctioned dry as had been done periodically throughout the case. I performed a laminectomy at L3 4with a combination of curettes and a high-speed bur and Kerrison rongeurs. A small medial facetectomy was performed again further access. A partial foraminotomy was also performed. Portions of the ligamentum flavum were taken down to expose the dura and traversing nerve root. I was able to mobilize the traversing nerve root and gain access to the disc space. Note was made of obvious compression from the disc. there is significant disc that had extruded cephalad and I was able to expose this as well.Protecting the soft tissue structures, a small annulotomy was established. I was able to perform discectomy and remove any extruded disc fragments and any loose fragments from within the disc itself. There is some severedisc desiccation noted. I tried to preserve the disc annulus that appeared stable. There were no further extruded fragments noted. There is no evidence of dural tear or leak. Good hemostasis maintained. The wound was copiously irrigated and suctioned dry. Good decompression and discectomy was noted. We were able to proceed with closure. The fascia was closed for a watertight closure. The subcuticular tissue was closed with absorbable suture. The wound was cleaned and dried and dressed with the appropriate dressing. The drapes were broken down. The patient was gently rolled back onto their hospital bed being careful to maintain their cervical spine and good neutral alignment and position. They were woken up by anesthesia, extubated, and brought to the recovery room in good stable condition. The patient will be admitted to the hospital for observation and for appropriate postoperative care, medical management and monitoring. We will continue to follow them closely about the postoperative course.
[2020-04-16] MEDS ORDERED: LABETALOL SYRINGE 5 MG/ML IVP ONE (09:08)
[2020-04-16 09:52] LABS: Glucose,Whole Blood 160 mg/dL (75-99)
[2020-04-16] MEDS ORDERED: LORATADINE 10 MG TAB PO PRN (10:10)
[2020-04-16] MEDS ORDERED: MECLIZINE 12.5 MG TAB PO PRN (10:10)
[2020-04-16] MEDS: HYDROcodone/APAP 5-325MG 1 EACH TAB PO PRN ×2 (16:06→20:39)
[2020-04-16] MEDS: carvediloL 3.125 MG TAB PO SCH (16:06)
[2020-04-16] MEDS: SENNOSIDES-DOCUSATE SODIUM 1 EACH TAB PO SCH (16:06)
[2020-04-16] MEDS: SODIUM CHLORIDE 0.9% 1,000 ML IV SCH ×2 (16:07→23:18)
--- NOTE | 2020-04-16 16:58 | XR ---
EXAMINATION TYPE: XR lumbar spine 1V, FL guidance operating room DATE OF EXAM: 04/16/2020 CLINICAL HISTORY: L3-L4 laminectomy TECHNIQUE: Fluoroscopy. COMPARISON: None. FINDINGS: Fluoroscopic guidance was provided during procedure for performing physician. A total of 4 seconds of fluoroscopic time was utilized during the procedure and 1 spot images was acquired. Plea se see operative report for additional details. IMPRESSION: As Above.
[2020-04-16] MEDS ORDERED: amLODIPine 5 MG TAB PO SCH (21:00)
[2020-04-16] MEDS ORDERED: lisinopriL 20 MG TAB PO SCH (21:00)
[2020-04-16] MEDS ORDERED: ATORVASTATIN 20 MG TAB PO SCH (21:00)
[2020-04-16] MEDS ORDERED: CITALOPRAM HYDROBROMIDE 20 MG TAB PO SCH (21:00)
[2020-04-16] MEDS ORDERED: MELATONIN 5 MG TABLET PO SCH (21:00)
[2020-04-16] MEDS: BACLOFEN 10 MG TAB PO SCH (22:08)
[2020-04-16] MEDS: GABAPENTIN 300 MG CAP PO SCH (22:08)
[2020-04-17 06:13] VITALS: BP 136/67; PULSE 85; RESP 18; TEMP 98.2
[2020-04-17] MEDS ORDERED: PANTOPRAZOLE 40 MG TABLET PO SCH (07:30)
[2020-04-17] MEDS ORDERED: metFORMIN 500 MG TAB PO SCH (07:30)
[2020-04-17] MEDS: BACLOFEN 10 MG TAB PO SCH (07:41)
[2020-04-17] MEDS: carvediloL 3.125 MG TAB PO SCH (07:42)
[2020-04-17] MEDS: GABAPENTIN 300 MG CAP PO SCH (07:42)
[2020-04-17] MEDS: SENNOSIDES-DOCUSATE SODIUM 1 EACH TAB PO SCH (07:42)
[2020-04-17] MEDS: HYDROcodone/APAP 5-325MG 1 EACH TAB PO PRN (07:45)
--- NOTE | 2020-04-17 10:31 | P.DS ---
Providers Date of admission: 04/16/20 Attending physician: Jalil Antunez Primary care physician: [facility] Course: The patient presented on the day of admission as per their operative note. She had a large disc herniation at L3 4 with extruded fragment and severe left lower extremity radiculopathy with weakness. She feels her leg is significantly improved in terms of pain. She is very happy with her leg is feeling a far. Her back is sore as expected. Physical Exam The incision site is clean dry and intact. There is no erythema no drainage. There is no purulence no evidence of infection. There is no active drainage. Abdomen soft and nontender. Chest has good excursion with deep inspiration and expiration. The patient has active and passive range of motion intact at the upper and lower extremities. There is no acute change in neurologic status. She has sustained dorsal flexion plantarflexion. She does not have any new weakness. Hospital Course Postoperative day #1 status post laminectomy decompression with discectomy L3 4. 4 her disc herniation with lower extremity radiculopathy and weakness. The patient has been making good progress postoperatively. They have completed the prophylactic antibiotics without any signs or symptoms of infection. The patient has been able to advance their diet, and is tolerating diet adequately. The pain was initially controlled with IV medications and is now controlled appropriately with oral medications. She is happy with how her leg is feeling and it is impressed with how the pain is improved in the majority of her leg. The patient has been able to increase their mobilization. The patient has progressed appropriately. I think they are in good stable condition for discharge today. They will be sent home with appropriate prescriptions. I answered their questions to the best of my ability in a language that they can understand and they are agreeable with the plan. They will follow up as directed. Patient Condition at Discharge: Good Plan - Discharge Summary Discharge Rx Participant: No New Discharge Prescriptions: No Action metFORMIN HCL [Glucophage] 500 mg PO AC-BRKFST Citalopram Hydrobromide [CeleXA] 20 mg PO HS lisinopriL 40 mg PO HS Ondansetron [Zofran ODT] 8 mg PO Q8H PRN PRN Reason: Nausea Cholecalciferol [Vitamin D3] 3,000 unit PO DAILY Docusate [Colace] 300 mg PO DAILY L.acidoph,Paracasei, B.lactis [Probiotic] 1 cap PO BID Cyanocobalamin (Vitamin B-12) [Vitamin B-12] 1,000 mcg PO QAM Melatonin 20 mg PO HS Lansoprazole [Prevacid] 30 mg PO QAM amLODIPine [Norvasc] 5 mg PO HS Rosuvastatin [Crestor] 10 mg PO HS Meclizine [Antivert] 12.5 mg PO DAILY PRN PRN Reason: dizzyness Ubidecarenone [Co Q-10] 200 mg PO QAM carvediloL [Coreg] 3.125 mg PO BID Gabapentin [Neurontin] 300 mg PO BID HYDROcodone/APAP 5-325MG [[place] 5-325] 1 tab PO Q6HR PRN PRN Reason: Pain Baclofen 10 mg PO BID Turmeric/Turmeric Root Extract [Turmeric 450-50 mg Capsule] 1 each PO HS Cetirizine HCl [Zyrtec] 10 mg PO DAILY PRN PRN Reason: allergies Discharge Medication List metFORMIN HCL [Glucophage] 500 mg PO AC-BRKFST 10/25/16 [History] Cholecalciferol [Vitamin D3] 3,000 unit PO DAILY 09/20/17 [History] Citalopram Hydrobromide [CeleXA] 20 mg PO HS 09/20/17 [History] Cyanocobalamin (Vitamin B-12) [Vitamin B-12] 1,000 mcg PO QAM 09/20/17 [History] Docusate [Colace] 300 mg PO DAILY 09/20/17 [History] L.acidoph,Paracasei, B.lactis [Probiotic] 1 cap PO BID 09/20/17 [History] Melatonin 20 mg PO HS 09/20/17 [History] Ondansetron [Zofran ODT] 8 mg PO Q8H PRN 09/20/17 [History] lisinopriL 40 mg PO HS 09/20/17 [History] Baclofen 10 mg PO BID 03/27/20 [History] Gabapentin [Neurontin] 300 mg PO BID 03/27/20 [History] HYDROcodone/APAP 5-325MG [[place] 5-325] 1 tab PO Q6HR PRN 03/27/20 [History] Lansoprazole [Prevacid] 30 mg PO QAM 03/27/20 [History] Meclizine [Antivert] 12.5 mg PO DAILY PRN 03/27/20 [History] Rosuvastatin [Crestor] 10 mg PO HS 03/27/20 [History] Turmeric/Turmeric Root Extract [Turmeric 450-50 mg Capsule] 1 each PO HS 03/27/20 [History] Ubidecarenone [Co Q-10] 200 mg PO QAM 03/27/20 [History] amLODIPine [Norvasc] 5 mg PO HS 03/27/20 [History] carvediloL [Coreg] 3.125 mg PO BID 03/27/20 [History] Cetirizine HCl [Zyrtec] 10 mg PO DAILY PRN 04/08/20 [History]
[2020-04-17] MEDS: SODIUM CHLORIDE 0.9% 1,000 ML IV SCH (11:34)
== END 2020-04-17 13:24 | disposition home or self-care (01) ==
LOC: OR 05:54 → 6NMEDSUR 08:43 → OR 04-17 13:24
PROVIDERS: ATTEND Orthopaedic Surgery Orthopaedic Surgery of the Spine
DX: M51.16 Intervertebral disc disorders with radiculopathy, lumbar region (principal); I10 Essential (primary) hypertension; E78.5 Hyperlipidemia, unspecified; E11.9 Type 2 diabetes mellitus without complications; M35.00 Sjogren syndrome, unspecified; N28.9 Disorder of kidney and ureter, unspecified; H91.90 Unspecified hearing loss, unspecified ear; K21.9 Gastro-esophageal reflux disease without esophagitis; Z79.84 Long term (current) use of oral hypoglycemic drugs; Z88.5 Allergy status to narcotic agent; Z88.1 Allergy status to other antibiotic agents; Z88.2 Allergy status to sulfonamides; Z88.8 Allergy status to other drugs, medicaments and biological substances; Z79.899 Other long term (current) drug therapy; Z98.49 Cataract extraction status, unspecified eye; Z86.711 Personal history of pulmonary embolism; Z83.3 Family history of diabetes mellitus; Z82.49 Family history of ischemic heart disease and other diseases of the circulatory system
CPT/HCPCS: 97162; 72020; 63030; J2250; J1040; J0690 ×2; J2405; J2001; J3010; J1885; J0330; J2704; J1170

== ENCOUNTER 2025-01-31 08:14 | Emergency (ER) | payer MEDICARE ==
[2025-01-31 08:23] VITALS: RESP 18; TEMP 97.6
--- NOTE | 2025-01-31 08:54 | ED ---
General Adult HPI - General Chief complaint: Dizziness Stated complaint: Vertigo Time Seen by Provider: 01/31/25 08:26 Source: patient, family Mode of arrival: wheelchair - History of Present Illness Initial comments: Dictation was produced using [employer] dictation software. please excuse any grammatical, word or spelling errors. Chief Complaint: 84-year-old female with vertigo History of Present Illness: Patient 84-year-old female reports extensive history of vertigo. Patient states she has been having a recurrence of her vertigo symptoms for the last 2 to 3 days. States that her symptoms initially began on Tuesday. The following day it started to get worse. She states that it has been worse. She takes Antivert Vert medication however has been throwing up and unable to control her symptoms. Patient states that this is usual of her typical vertigo symptoms. Denies any pain complaints. Patient has had some episodes of nonbilious nonbloody emesis. The ROS documented in this emergency department record has been reviewed and confirmed by me. Those systems with pertinent positive or negative responses have been documented in the HPI. All other systems are other negative and/or noncontributory. - Related Data Home Medications Medication Instructions Recorded Confirmed metFORMIN HCL [Glucophage] 500 mg PO [id number] 10/25/16 04/16/20 Cholecalciferol [Vitamin D3] 3,000 unit PO DAILY 09/20/17 04/16/20 Citalopram Hydrobromide [CeleXA] 20 mg PO HS 09/20/17 04/16/20 Cyanocobalamin (Vitamin B-12) 1,000 mcg PO QAM 09/20/17 04/16/20 [Vitamin B-12] Docusate [Colace] 300 mg PO DAILY 09/20/17 04/16/20 L.acidoph,Paracasei, B.lactis 1 cap PO BID 09/20/17 04/16/20 [Probiotic] Melatonin [Melatonin Tr] 20 mg PO HS 09/20/17 04/16/20 Ondansetron [Zofran ODT] 8 mg PO Q8H PRN 09/20/17 04/16/20 lisinopriL 40 mg PO HS 09/20/17 04/16/20 Baclofen 10 mg PO BID 03/27/20 04/16/20 Gabapentin [Neurontin] 300 mg PO BID 03/27/20 04/16/20 HYDROcodone/APAP 5-325MG [[place] 1 tab PO Q6HR PRN 03/27/20 04/16/20 5-325] Lansoprazole [Prevacid] 30 mg PO QAM 03/27/20 04/16/20 Meclizine [Antivert] 12.5 mg PO DAILY PRN 03/27/20 04/16/20 Rosuvastatin [Crestor] 10 mg PO HS 03/27/20 04/16/20 Turmeric/Turmeric Root Extract 1 each PO HS 03/27/20 04/16/20 [Turmeric 450-50 mg Capsule] Ubidecarenone [Co Q-10] 200 mg PO QAM 03/27/20 04/16/20 amLODIPine [Norvasc] 5 mg PO HS 03/27/20 04/16/20 carvediloL [Coreg] 3.125 mg PO BID 03/27/20 04/16/20 Cetirizine HCl [Zyrtec] 10 mg PO DAILY PRN 04/08/20 04/16/20 Previous Rx's Medication Instructions Recorded Baclofen 10 mg PO TID PRN #90 tab 04/17/20 Allergies Allergy/AdvReac Type Severity Reaction Status Date / Time sulfamethoxazole Allergy Unknown Nausea & Verified 04/08/20 11:34 [From Bactrim] Vomiting trimethoprim [From Bactrim] Allergy Unknown Nausea & Verified 04/08/20 11:34 Vomiting Tetracyclines Allergy Nausea & Verified 04/08/20 11:34 Vomiting amoxicillin trihydrate AdvReac Nausea & Verified 04/08/20 11:34 [From Augmentin] Vomiting azithromycin [From Zithromax] AdvReac Nausea & Verified 04/08/20 11:34 Vomiting codeine AdvReac Nausea & Verified 04/08/20 11:34 Vomiting potassium clavulanate AdvReac Nausea & Verified 04/08/20 11:34 [From Augmentin] Vomiting tetracycline AdvReac Nausea & Verified 04/08/20 11:34 Vomiting tramadol AdvReac Nausea & Verified 04/08/20 11:34 Vomiting Review of Systems ROS Statement: Those systems with pertinent positive or pertinent negative responses have been documented in the HPI. ROS Other: All systems not noted in ROS Statement are negative. Past Medical History Past Medical History: Diabetes Mellitus, Eye Disorder, GERD/Reflux, Hypertension, Osteoarthritis (OA), Pulmonary Embolus (PE) Additional Past Medical History / Comment(s): Shogren's, tremors, hx of pneumonia or bronchitis in Aug 2016. bilat eye cataract. Thin skin that bruises very easily, finishing antibiotic today for recent UTI, low back pain down left leg especially w/standing History of Any Multi-Drug Resistant Organisms: None Reported Past Surgical History: Tubal Ligation Additional Past Surgical History / Comment(s): bilat cataract surgery. Past Anesthesia/Blood Transfusion Reactions: Postoperative Nausea & Vomiting (PONV) Past Psychological History: Anxiety Smoking Status: Never smoker Past Alcohol Use History: None Reported Past Drug Use History: None Reported - Past Family History Mother Family Medical History: Diabetes Mellitus, Hyperlipidemia, Myocardial Infarction ([place]) Father Family Medical History: Cancer Additional Family Medical History / Comment(s): SKIN CANCER Daughter(s) Family Medical History: Cancer Additional Family Medical History / Comment(s): Breast Cancer General Exam - General Exam Comments Initial Comments: PHYSICAL EXAM: General Impression: Alert and oriented x3, not in acute distress HEENT: Normocephalic atraumatic, extra-ocular movements intact, pupils equal and reactive to light bilaterally, mucous membranes moist. Cardiovascular: Heart regular rate and rhythm Chest: Able to complete full sentences, no retractions, no tachypnea Abdomen: abdomen soft, non-tender, non-distended, no organomegaly Musculoskeletal: Pulses present and equal in all extremities, no peripheral edema Motor: no focal deficits noted Neurological: CN II-XII grossly intact, no focal motor or sensory deficits noted Skin: Intact with no visualized rashes Psych: Normal affect and mood Course Vital Signs 01/31/25 01/31/25 01/31/25 08:18 09:54 11:12 Temperature 97.6 F Pulse Rate 94 80 87 Respiratory 18 18 18 Rate Blood Pressure 214/126 174/85 185/89 O2 Sat by Pulse 99 99 98 Oximetry EKG Findings - EKG Comments: EKG Findings:: My EKG interpretation: Ventricular rate75, sinus rhythm, WA 144, cures 85, QTc 417 . No WA prolongation, no QTC prolongation, no ST or T-wave changes noted. Overall, this EKG is unremarkable Medical Decision Making - Medical Decision Making Was pt. sent in by a medical professional or institution (, PA, WIRELESS NETWORK ENGINEER, urgent care, hospital, or senior living...) When possible be specific @ -No Did you speak to anyone other than the patient for history (EMS, parent, family, police, friend...)? What history was obtained from this source @ -No Did you review nursing and triage notes (agree or disagree)? Why? @ -I reviewed and agree with nursing and triage notes Were old charts reviewed (outside hosp., previous admission, EMS record, old EKG, old radiological studies, urgent care reports/EKG's, senior living records)? Report findings @ -No old charts were reviewed Differential Diagnosis (chest pain, altered mental status, abdominal pain women, abdominal pain men, vaginal bleeding, musculoskeletal, weakness, fever, dyspnea, syncope, headache, dizziness, GI bleed, back pain, seizure, CVA, palpatations, mental health)? @ -Differential Dizziness: Benign paroxysmal positional Vertigo, Meniere's disease, otitis media, acoustic neuroma, vertebrobasilar insufficiency, cerebellar stroke, encephalitis, hypovolemic, arrhythmia, coronary artery syndrome, anemia, this is not meant to be an all-inclusive list EKG interpreted by me (3pts min.). @ -See above X-rays interpreted by me (1pt min.). @ -None done CT interpreted by me (1pt min.). @ -None done U/S interpreted by me (1pt. min.). @ -None done What testing was considered but not performed or refused? (CT, X-rays, U/S, labs)? Why? @ -None What meds were considered but not given or refused? Why? @ -None Was smoking cessation discussed for >3mins.? @ -No Were there social determinants of health that impacted care today? How? (Homelessness, low income, unemployed, alcoholism, drug addiction, transportation, low edu. Level, literacy, decrease access to med. care, senior living, rehab)? @ -No Was there de-escalation of care discussed even if they declined (Discuss DNR or withdrawal of care, Hospice)? DNR status @ -No What co-morbidities impacted this encounter? (DM, HTN, Smoking, COPD, CAD, Cancer, CVA, ARF, Chemo, Hep., AIDS, mental health diagnosis, sleep apnea, morbid obesity)? @ -Vertigo Was patient admitted / discharged? Hospital course, mention meds given and route, prescriptions, significant lab abnormalities, going to OR and other pertinent info. @ -84-year-old female who reports extensive history of vertigo presents emergency department for vertigo ongoing for the last 3 to 4 days. Vital signs stable. Patient well-appearing at bedside. Patient has no otherwise focal neurologic issues. States it feels like her usual vertigo symptoms. Requesting a vertigo shot. Patient labs shows some slight acidosis. Patient given IV fluids for concerns of dehydration. Patient reevaluated after Reglan, Antivert and diazepam with improvement of symptoms. There is requested by patient to be discharged so that she can continue to rest at home despite advising patient to be monitored in the ER for reevaluation of symptoms. States that she will follow-up closely with her primary care doctor. Did you discuss the management of the patient with other professionals (professionals i.e. , PA, WIRELESS NETWORK ENGINEER, lab, RT, psych nurse, social research assistant, funeral home associate, teacher, disciplinary hearing officer, caser shoe parts)? Give summary @ -No Was critical care preformed (if so, how long)? @ -No Undiagnosed new problem with uncertain prognosis? @ -No Drug Therapy requiring intensive monitoring for toxicity (Heparin, Nitro, Insulin, Cardizem)? @ -No Were any procedures done? @ -No Diagnosis/symptom? Acute, or Chronic, or Acute on Chronic? Uncomplicated (without systemic symptoms) or Complicated (systemic symptoms)? @ -Vertigo Side effects of treatment? @ -No Exacerbation, Progression, or Severe Exacerbation? @ -No Poses a threat to life or bodily function? How? (Chest pain, [place], [place], pneumonia, PE, COPD, DKA, ARF, appy, cholecystitis, CVA, Diverticulitis, Homicidal, Suicidal, threat to staff... and all critical care pts) @ -yes - Lab Data Result diagrams: 01/31/25 09:05 01/31/25 09:05 Lab Results 01/31/25 01/31/25 Range/Units 09:05 09:05 WBC 8.34 (4.50-10.00) 10*3/uL RBC 4.72 (4.10-5.20) 10*6/uL Hgb 14.1 (12.0-15.0) g/dL Hct 43.0 (37.2-46.3) % MCV 91.1 (80.0-97.0) fL MCH 29.9 (27.0-32.0) pg MCHC 32.8 (32.0-37.0) g/dL Plt Count 206 (140-440) 10*3/uL MPV 11.1 (9.5-12.2) fL Immature Gran % (Auto) 0.7 % Neutrophils % 64.5 % Lymphocytes % 25.1 % Monocytes % 9.2 % Eosinophils % 0.0 % Basophils % 0.5 % Immature Gran # 0.06 H (0.00-0.04) 10*3/uL Neutrophils # 5.38 (1.80-7.70) 10*3/uL Lymphocytes # 2.09 (0.90-5.00) 10*3/uL Monocytes # 0.77 (0.20-1.00) 10*3/uL Eosinophils # 0.00 L (0.04-0.35) 10*3/uL Basophils # 0.04 (0.00-0.10) 10*3/uL Manual Slide Review Performed Immature Plt Fraction 3.1 (1.1-6.1) % RBC Morphology Normal Sodium 139 (137-145) mmol/L Potassium 4.2 (3.5-5.1) mmol/L Chloride 105 (98-107) mmol/L Carbon Dioxide 17 L (22-30) mmol/L Anion Gap 17 mmol/L BUN 19 H (7-17) mg/dL Creatinine 0.91 (0.52-1.04) mg/dL Est GFR (CKD-EPI)AfAm 68 (>60 ml/min/1.73 sqM) Est GFR (CKD-EPI)NonAf 59 (>60 ml/min/1.73 sqM) Glucose 226 H (74-99) mg/dL Calcium 11.6 H (8.4-10.2) mg/dL Magnesium 1.8 (1.6-2.3) mg/dL Total Bilirubin 0.7 (0.2-1.3) mg/dL AST 45 H (14-36) U/L ALT 32 (4-34) U/L Alkaline Phosphatase 129 H (38-126) U/L Total Protein 8.0 (6.3-8.2) g/dL Albumin 4.5 (3.5-5.0) g/dL Disposition Clinical Impression: Vertigo Disposition: HOME SELF-CARE Condition: Fair Instructions (If sedation given, give patient instructions): Dizziness (ED) Is patient prescribed a controlled substance at d/c from ED?: No Referrals: Ralf Suarez MD [Medical Doctor] - 1-2 days Time of Disposition: 11:39
[2025-01-31] MEDS: SODIUM CHLORIDE 0.9% 1,000 ML IV STA (09:25)
[2025-01-31 09:28] LABS: Basophils # (A) 0.04 10*3/uL (0.00-0.10); Basophils % (A) 0.5 %; HGB 14.1 g/dL (12.0-15.0); Immature Platelet Fraction 3.1 % (1.1-6.1); Lymphocytes # (A) 2.09 10*3/uL (0.90-5.00); Lymphocytes % (A) 25.1 %; MCH 29.9 pg (27.0-32.0); MCHC 32.8 g/dL (32.0-37.0); MCV 91.1 fL (80.0-97.0); Mean Platelet Volume 11.1 fL (9.5-12.2); Monocytes # (A) 0.77 10*3/uL (0.20-1.00); Monocytes % (A) 9.2 %; Neutrophils # (A) 5.38 10*3/uL (1.80-7.70); Neutrophils % (A) 64.5 %; RBC 4.72 10*6/uL (4.10-5.20); RDW 12.9 % (11.5-14.5); WBC 8.34 10*3/uL (4.50-10.00)
[2025-01-31] MEDS: METOCLOPRAMIDE 5 MG/ML 2 ML VIAL IVP STA (09:42)
[2025-01-31 09:49] LABS: ALT 32 U/L (4-34); African American GFR (CKD) 68 (>60 ml/min/1.73 sqM); Albumin 4.5 g/dL (3.5-5.0); Anion Gap 17 mmol/L; Blood Urea Nitrogen 19 mg/dL (7-17); Calcium 11.6 mg/dL (8.4-10.2); Carbon Dioxide 17 mmol/L (22-30); Chloride 105 mmol/L (98-107); Glucose 226 mg/dL (74-99); Non-African American GFR(CKD) 59 (>60 ml/min/1.73 sqM); Sodium 139 mmol/L (137-145); Total Bilirubin 0.7 mg/dL (0.2-1.3)
[2025-01-31 09:51] LABS: AST 45 U/L (14-36); Alkaline Phosphatase 129 U/L (38-126); Magnesium 1.8 mg/dL (1.6-2.3); Potassium 4.2 mmol/L (3.5-5.1)
[2025-01-31 10:16] LABS: Platelet Count 206 10*3/uL (140-440); RBC Morphology Normal
[2025-01-31] MEDS: MECLIZINE 12.5 MG TAB PO STA (10:44)
[2025-01-31 12:13] VITALS: BP 185/85; PULSE 80
== END 2025-01-31 12:13 | disposition home or self-care (01) ==
LOC: EC 08:14 → SUPCPDRO 08:14 → EC 12:13
DX: R42 Dizziness and giddiness (principal); Z88.1 Allergy status to other antibiotic agents; Z88.5 Allergy status to narcotic agent; Z88.0 Allergy status to penicillin; Z88.2 Allergy status to sulfonamides; Z88.8 Allergy status to other drugs, medicaments and biological substances
CPT/HCPCS: 36415; 93005; 80053; 83735; 85025; 99284; 96374; 96375; 96361; J2765; J3360

== ENCOUNTER 2025-02-02 11:55 | Inpatient (IN) | payer MEDICARE ==
[2025-02-02] MEDS: ONDANSETRON 4 MG/2 ML VIAL IVP STA (12:51)
[2025-02-02] MEDS: SODIUM CHLORIDE 0.9% 1,000 ML IV STA (12:52)
[2025-02-02 13:22] LABS: Basophils # (A) 0.06 10*3/uL (0.00-0.10); Basophils % (A) 0.8 %; Eosinophils # (A) 0.02 10*3/uL (0.04-0.35); Eosinophils % (A) 0.3 %; HCT 37.9 % (37.2-46.3); HGB 12.3 g/dL (12.0-15.0); Lymphocytes # (A) 2.74 10*3/uL (0.90-5.00); Lymphocytes % (A) 37.4 %; MCH 29.4 pg (27.0-32.0); MCHC 32.5 g/dL (32.0-37.0); MCV 90.5 fL (80.0-97.0); Monocytes # (A) 0.95 10*3/uL (0.20-1.00); Monocytes % (A) 13.0 %; Neutrophils # (A) 3.54 10*3/uL (1.80-7.70); Neutrophils % (A) 48.2 %; Platelet Count 227 10*3/uL (140-440); RBC 4.19 10*6/uL (4.10-5.20); RDW 12.7 % (11.5-14.5); WBC 7.33 10*3/uL (4.50-10.00)
[2025-02-02 13:37] LABS: ALT 40 U/L (4-34); AST 49 U/L (14-36); African American GFR (CKD) 86 (>60 ml/min/1.73 sqM); Albumin 3.7 g/dL (3.5-5.0); Alkaline Phosphatase 101 U/L (38-126); Anion Gap 13 mmol/L; Blood Urea Nitrogen 16 mg/dL (7-17); Calcium 10.2 mg/dL (8.4-10.2); Carbon Dioxide 19 mmol/L (22-30); Chloride 106 mmol/L (98-107); Glucose 139 mg/dL (74-99); Non-African American GFR(CKD) 75 (>60 ml/min/1.73 sqM); Potassium 3.3 mmol/L (3.5-5.1); Sodium 138 mmol/L (137-145); Total Protein 6.7 g/dL (6.3-8.2)
[2025-02-02 14:10] LABS: Bilirubin,Urine Negative (Negative); Blood,Urine Negative (Negative); Color,Urine Colorless; Glucose,Urine (UA) Negative (Negative); Ketones,Urine Trace (Negative); Leukocyte Esterase,Urine Large (Negative); Nitrite,Urine Negative (Negative); PH, Urine 7.0 (5.0-8.0); Protein,Urine Negative (Negative); RBC,Urine 2 /hpf (0-5); Specific Gravity,Urine 1.007 (1.001-1.035); Squamous Epithelial Cell,Urine <1 /hpf (0-4); Urobilinogen,Urine <2.0 mg/dL (<2.0); WBC,Urine 16 /hpf (0-5)
--- NOTE | 2025-02-02 14:56 | CT ---
EXAMINATION TYPE: CT brain wo con DATE OF EXAM: 02/02/2025 2:13 PM COMPARISON: None. CLINICAL INDICATION: Female, 84 years old with history of intractable dizziness, dizzy TECHNIQUE: Brain: Axial CT images of the brain were obtained with coronal and sagittal reformats created and rev iewed. Contrast used: None. Oral contrast used: None. CT DLP: 1094.5 mGycm, Automated exposure control for dose reduction was used. FINDINGS: Brain: Extra-axial spaces: No abnormal extra-axial fluid collections. Ventricular system: Dilatation in proportion to cerebral atrophy. Cerebral parenchyma: Cerebral atrophy. No acute intraparenchymal hemorrhage or mass effect. The villavicencio -white junction is well differentiated. Scattered hypoattenuating areas are seen within the white mat ter. Cerebellum: Unremarkable. Mass effect: No evidence of midline shift. Intracranial vasculature: unremarkable Soft tissues: Normal. Calvarium/osseous structures: No depressed skull fracture. Paranasal sinuses and mastoid air cells: Mild scattered paranasal sinus disease. Visualized orbits: Orbital contents are intact. IMPRESSION: 1. No acute intracranial process. 2. Nonspecific white matter changes, likely secondary to chronic small vessel ischemic disease. [facility], , 02/02/2025 2:54 PM
--- NOTE | 2025-02-02 14:56 | CT ---
EXAMINATION TYPE: CT angio head neck DATE OF EXAM: 02/02/2025 2:14 PM COMPARISON: CT head. CLINICAL INDICATION: Female, 84 years old with history of intractable dizziness; PHH, dizzy TECHNIQUE: Axially acquired helical CT angiogram of the head and neck was obtained with contrast. Axi al images are supplemented with 3D reconstructions and MIP images which were post-processed at an in dependent workstation. NASCET criteria used. Contrast used:65 mL of Isovue 370 with IV Contrast, Oral contrast used: None. CT DLP: 363.4 mGycm, Automated exposure control for dose reduction was used. FINDINGS: CTA HEAD: No evidence of acute intracranial hemorrhage, mass effect, or midline shift. The ventricles, sulci, a nd cisterns are unremarkable. Vertebral arteries: The vertebral arteries are patent. Vertebral artery dominance: Diminutive left intracranial portion of the vertebral artery with calcifi cation. The left vertebral artery may terminate as posterior inferior cerebellar artery. Basilar artery: The basilar artery is intact. The basilar artery bifurcation is normal. Internal Carotid arteries: The cervical, petrous, cavernous and supraclinoid segments are normal. RODNEY: Hypoplastic right A1 segment. Normal left A1 segment. Patent with no evidence of aneurysm. ACOM: Present without evidence of aneurysm. MCA: Patent with no evidence of aneurysm. ENGINEER STATION MAINLINE: Patent with no evidence of aneurysm. PCOM: Hypoplastic bilaterally. Dural sinuses: Patent. CTA NECK: Right Carotid System: The common carotid artery and external carotid artery are patent. The carotid bifurcation demonstrate s no evidence of hemodynamically significant stenosis. The remaining portions of the internal carotid artery demonstrate normal size without significant narrowing. Left Carotid System: The common carotid artery and external carotid artery are patent. The carotid bifurcation demonstrate s no evidence of hemodynamically significant stenosis. The remaining portions of the internal carotid artery demonstrate normal size without significant narrowing. Vertebral arteries are patent without evidence hemodynamically significant stenosis. There is a three-vessel aortic arch. The origins of the great vessels are patent. No evidence of hemo dynamically significant stenosis. IMPRESSION: 1. No evidence of dissection of the cervical internal carotid arteries or vertebral arteries. 2. No any evidence of significant stenosis at the carotid bifurcations. 3. No evidence of intracranial high-grade stenosis or intracranial aneurysm. 4. Hypoplastic right A1 segment. 5. Diminutive left intracranial vertebral artery. The left vertebral artery may terminate as the pos terior inferior cerebellar artery. [facility], , 02/02/2025 2:54 PM
[2025-02-02] MEDS ORDERED: ACETAMINOPHEN TAB 325 MG TAB PO PRN (15:34)
[2025-02-02] MEDS ORDERED: NALOXONE 0.4 MG/ML 1 ML VIAL IV PRN (15:34)
--- NOTE | 2025-02-02 15:34 | ED ---
General Adult HPI - General Chief complaint: Dizziness Stated complaint: Dizziness Time Seen by Provider: 02/02/25 12:16 Source: patient, family Mode of arrival: EMS Limitations: physical limitation - History of Present Illness Initial comments: 84-year-old female with past medical history of diabetes, hypertension who presents to the emergency department with continued vertiginous symptoms. Episode started on Tuesday. The patient was seen on in the emergency department. She was given meclizine and Valium and wanted to go home. Family at bedside states that she has not done well. She has not been eating or drinking. Has had numerous episodes of vomiting to where she can even take her medications. Patient has been bedbound which has led to significant weakness. Patient denies headache or visual changes. Does admit to a room spinning sensation. No lateralizing weakness. No history of stroke. No other alleviating, precipitating or modifying factors - Related Data Home Medications Medication Instructions Recorded Confirmed Docusate [Colace] 200 mg PO DAILY PRN 09/20/17 02/02/25 Melatonin [Melatonin Tr] 10 mg PO HS 09/20/17 02/02/25 lisinopriL 40 mg PO HS 09/20/17 02/02/25 carvediloL [Coreg] 3.125 mg PO BID 03/27/20 02/02/25 Cetirizine HCl [Zyrtec] 10 mg PO HS 04/08/20 02/02/25 Acetaminophen [Tylenol Arthritis] 1,300 mg PO Q6H PRN 02/02/25 02/02/25 Albuterol Inhaler [Ventolin Hfa 2 puff INHALATION RT-Q4H PRN 02/02/25 02/02/25 Inhaler] Cholecalciferol [Vitamin D3 (25 75 mcg PO DAILY 02/02/25 02/02/25 Mcg = 1000 Iu)] Cranberry Fruit Extract [Cranberry] 500 mg PO HS 02/02/25 02/02/25 Diclofenac Sodium Gel [Voltaren 1% 1 applic TOPICAL QID PRN 02/02/25 02/02/25 Gel] Famotidine 40 mg PO HS 02/02/25 02/02/25 Ibuprofen [Motrin Ib] 400 mg PO Q6H PRN 02/02/25 02/02/25 Lansoprazole [Prevacid 24Hr OTC] 30 mg PO DAILY 02/02/25 02/02/25 Magnesium Oxide [Mag-Ox] 400 mg PO HS 02/02/25 02/02/25 PARoxetine HCL 15 mg PO DAILY 02/02/25 02/02/25 Pseudoephedrine 12Hr [Sudafed 12 120 mg PO Q12HR PRN 02/02/25 02/02/25 Hour] Sennosides [Senokot] 8.6 mg PO DAILY PRN 02/02/25 02/02/25 Turmeric Root Extract [Turmeric] 750 mg PO DAILY 02/02/25 02/02/25 Vitamin C With Zinc 1,000mg/15mg 1 tab PO DAILY 02/02/25 02/02/25 bisacodyL [Dulcolax] 10 mg RECTAL DAILY PRN 02/02/25 02/02/25 guaiFENesin SYRUP 100MG/5ML 200 mg PO Q4H PRN 02/02/25 02/02/25 [Robitussin] guaiFENesin [Mucinex] 600 mg PO Q12H PRN 02/02/25 02/02/25 lidocaine HCL [Icy Hot Max] 1 applic TOPICAL QID PRN 02/02/25 02/02/25 metFORMIN HCL [metFORMIN HCL ER] 750 mg PO HS 02/02/25 02/02/25 Previous Rx's Medication Instructions Recorded Aspirin 81 mg PO DAILY #30 tab 02/07/25 Atorvastatin [Lipitor] 80 mg PO HS tab 02/07/25 Heparin Sodium,Porcine (1 ml) 5,000 unit SQ Q12HR each 02/07/25 [Heparin Sodium] INSULIN LISPRO (HumaLOG) [HumaLOG] 0 unit SQ ACHS each 02/07/25 Meclizine [Antivert] 25 mg PO TID tab 02/07/25 amLODIPine [Norvasc] 10 mg PO DAILY tab 02/07/25 Allergies Allergy/AdvReac Type Severity Reaction Status Date / Time sulfamethoxazole Allergy Unknown Nausea & Verified 02/02/25 17:10 [From Bactrim] Vomiting trimethoprim [From Bactrim] Allergy Unknown Nausea & Verified 02/02/25 17:10 Vomiting Tetracyclines Allergy Nausea & Verified 02/02/25 17:10 Vomiting amoxicillin trihydrate AdvReac Nausea & Verified 02/02/25 17:10 [From Augmentin] Vomiting azithromycin [From Zithromax] AdvReac Nausea & Verified 02/02/25 17:10 Vomiting codeine AdvReac Nausea & Verified 02/02/25 17:10 Vomiting potassium clavulanate AdvReac Nausea & Verified 02/02/25 17:10 [From Augmentin] Vomiting tetracycline AdvReac Nausea & Verified 02/02/25 17:10 Vomiting tramadol AdvReac Nausea & Verified 02/02/25 17:10 Vomiting Review of Systems ROS Statement: Those systems with pertinent positive or pertinent negative responses have been documented in the HPI. ROS Other: All systems not noted in ROS Statement are negative. Past Medical History Past Medical History: Diabetes Mellitus, Eye Disorder, GERD/Reflux, Hypertension, Osteoarthritis (OA), Pulmonary Embolus (PE) Additional Past Medical History / Comment(s): Shogren's, tremors, hx of pneumonia or bronchitis in Aug 2016. bilat eye cataract. Thin skin that bruises very easily, finishing antibiotic today for recent UTI, low back pain down left leg especially w/standing History of Any Multi-Drug Resistant Organisms: None Reported Past Surgical History: Back Surgery, Tubal Ligation Additional Past Surgical History / Comment(s): bilat cataract surgery. Past Anesthesia/Blood Transfusion Reactions: Postoperative Nausea & Vomiting (PONV) Past Psychological History: Anxiety Smoking Status: Never smoker Past Alcohol Use History: None Reported Past Drug Use History: None Reported - Past Family History Mother Family Medical History: Diabetes Mellitus, Hyperlipidemia, Myocardial Infarction (NE) Father Family Medical History: Cancer Additional Family Medical History / Comment(s): SKIN CANCER Daughter(s) Family Medical History: Cancer Additional Family Medical History / Comment(s): Breast Cancer General Exam Limitations: physical limitation General appearance: alert, in no apparent distress Head exam: Present: atraumatic, normocephalic, normal inspection Eye exam: Present: PERRL, EOMI, nystagmus. Absent: scleral icterus, conjunctival injection, periorbital swelling ENT exam: Present: normal exam, mucous membranes moist Neck exam: Present: normal inspection. Absent: tenderness, meningismus, lymphadenopathy Respiratory exam: Present: normal lung sounds bilaterally. Absent: respiratory distress, wheezes, rales, rhonchi, stridor Cardiovascular Exam: Present: regular rate, normal rhythm, normal heart sounds. Absent: systolic murmur, diastolic murmur, rubs, gallop, clicks GI/Abdominal exam: Present: soft, normal bowel sounds. Absent: distended, tenderness, guarding, rebound, rigid Extremities exam: Present: normal inspection, full ROM, normal capillary refill. Absent: tenderness, pedal edema, joint swelling, calf tenderness Back exam: Present: normal inspection Neurological exam: Present: alert, oriented X3, CN II-XII intact Psychiatric exam: Present: normal affect, normal mood Skin exam: Present: warm, dry, intact, normal color. Absent: rash Course Vital Signs 02/02/25 02/02/25 02/02/25 11:58 13:00 14:06 Temperature 98.4 F Pulse Rate 75 72 74 Respiratory 16 16 16 Rate Blood Pressure 182/87 195/91 189/88 O2 Sat by Pulse 98 98 97 Oximetry 02/02/25 02/02/25 15:00 17:20 Temperature 96.8 F L Pulse Rate 74 78 Respiratory 18 16 Rate Blood Pressure 181/90 183/99 O2 Sat by Pulse 97 97 Oximetry Medical Decision Making - Medical Decision Making Was pt. sent in by a medical professional or institution (, PA, LEAD CONSULTANT, urgent care, hospital, or residential...) When possible be specific @ -No Did you speak to anyone other than the patient for history (EMS, parent, family, police, friend...)? What history was obtained from this source @ -With the son for history Did you review nursing and triage notes (agree or disagree)? Why? @ -I reviewed and agree with nursing and triage notes Were old charts reviewed (outside hosp., previous admission, EMS record, old EKG, old radiological studies, urgent care reports/EKG's, residential records)? Report findings @ -I reviewed the chart from where patient was seen for the same complaint Differential Diagnosis (chest pain, altered mental status, abdominal pain women, abdominal pain men, vaginal bleeding, weakness, fever, dyspnea, syncope, headache, dizziness, GI bleed, back pain, seizure, CVA, palpatations, mental health, musculoskeletal)? @ -Differential Dizziness: Benign paroxysmal positional Vertigo, Meniere's disease, otitis media, acoustic neuroma, vertebrobasilar insufficiency, cerebellar stroke, encephalitis, h ypovolemic, arrhythmia, coronary artery syndrome, anemia, this is not meant to be an all-inclusive list EKG interpreted by me (3pts min.). @ -Yes and demonstrates sinus rhythm with a rate of 77. DE interval 130. QRS 90. QTc of 430. No acute ST segment elevations or depressions X-rays interpreted by me (1pt min.). @ -Yes which demonstrates no acute process CT interpreted by me (1pt min.). @ -Yes which demonstrates no acute process U/S interpreted by me (1pt. min.). @ -None done What testing was considered but not performed or refused? (CT, X-rays, U/S, labs)? Why? @ -None What meds were considered but not given or refused? Why? @ -None Did you discuss the management of the patient with other professionals (professionals i.e. , PA, LEAD CONSULTANT, lab, RT, psych nurse, outreach and education social worker, cheese supervisor, teacher, supervisor dog license officer, case supervisor)? Give summary @ -Spoke with Dr. Chaudhari for the admission Was smoking cessation discussed for >3mins.? @ -No Was critical care preformed (if so, how long)? @ -No Were there social determinants of health that impacted care today? How? (Homelessness, low income, unemployed, alcoholism, drug addiction, transportation, low edu. Level, literacy, decrease access to med. care, usp, rehab)? @ -No Was there de-escalation of care discussed even if they declined (Discuss DNR or withdrawal of care, Hospice)? DNR status @ -No What co-morbidities impacted this encounter? (DM, HTN, Smoking, COPD, CAD, Cancer, CVA, ARF, Chemo, Hep., AIDS, mental health diagnosis, sleep apnea, morbid obesity)? @ -None Was patient admitted / discharged? Hospital course, mention meds given and route, prescriptions, significant lab abnormalities, going to OR and other pertinent info. @ -Upon arrival patient seen and evaluated in hallway 20. Thorough history and physical exam was performed. IV access was established. Patient was given 1 L normal saline, 4 of Zofran and Valium. Laboratory studies are conducted. She is sent for CT which demonstrates no acute process. Due to persistent intractable vertigo I did recommend admission for neurology consultation. Patient was agreeable to this. Spoke with Dr. Chaudhari for the admission Undiagnosed new problem with uncertain prognosis? @ -No Drug Therapy requiring intensive monitoring for toxicity (Heparin, Nitro, Insul in, Cardizem)? @ -No Were any procedures done? @ -No Diagnosis/symptom? @ -Intractable vertigo, nausea and vomiting Acute, or Chronic, or Acute on Chronic? @ -Acute Uncomplicated (without systemic symptoms) or Complicated (systemic symptoms)? @ -Complicated Side effects of treatment? @ -No Exacerbation, Progression, or Severe Exacerbation? @ -No Poses a threat to life or bodily function? How? (Chest pain, [place], NE, pneumonia, PE, COPD, DKA, ARF, appy, cholecystitis, CVA, Diverticulitis, Homicidal, Suicidal, threat to staff... and all critical care pts) @ -Assess patient has possible strokelike symptoms - Lab Data Result diagrams: 02/06/25 04:38 02/06/25 04:38 Lab Results 02/02/25 02/02/25 02/02/25 Range/Units 13:15 13:15 13:15 WBC 7.33 (4.50-10.00) 10*3/uL RBC 4.19 (4.10-5.20) 10*6/uL Hgb 12.3 (12.0-15.0) g/dL Hct 37.9 (37.2-46.3) % MCV 90.5 (80.0-97.0) fL MCH 29.4 (27.0-32.0) pg MCHC 32.5 (32.0-37.0) g/dL Plt Count 227 (140-440) 10*3/uL MPV 10.7 (9.5-12.2) fL Immature Gran % (Auto) 0.3 % Neutrophils % 48.2 % Lymphocytes % 37.4 % Monocytes % 13.0 % Eosinophils % 0.3 % Basophils % 0.8 % Immature Gran # 0.02 (0.00-0.04) 10*3/uL Neutrophils # 3.54 (1.80-7.70) 10*3/uL Lymphocytes # 2.74 (0.90-5.00) 10*3/uL Monocytes # 0.95 (0.20-1.00) 10*3/uL Eosinophils # 0.02 L (0.04-0.35) 10*3/uL Basophils # 0.06 (0.00-0.10) 10*3/uL Sodium 138 (137-145) mmol/L Potassium 3.3 L (3.5-5.1) mmol/L Chloride 106 (98-107) mmol/L Carbon Dioxide 19 L (22-30) mmol/L Anion Gap 13 mmol/L BUN 16 (7-17) mg/dL Creatinine 0.75 (0.52-1.04) mg/dL Est GFR (CKD-EPI)AfAm 86 (>60 ml/min/1.73 sqM) Est GFR (CKD-EPI)NonAf 75 (>60 ml/min/1.73 sqM) Glucose 139 H (74-99) mg/dL Estimated Ave Glu mg/dL mg/dL Hemoglobin A1c (<=6.0) % Plasma Lactic Acid Allen 1.1 (0.7-2.0) mmol/L Calcium 10.2 (8.4-10.2) mg/dL Total Bilirubin 0.5 (0.2-1.3) mg/dL AST 49 H (14-36) U/L ALT 40 H (4-34) U/L Alkaline Phosphatase 101 (38-126) U/L Troponin I (0.000-0.034) ng/mL Total Protein 6.7 (6.3-8.2) g/dL Albumin 3.7 (3.5-5.0) g/dL Urine Color Urine Appearance (Clear) Urine pH (5.0-8.0) Ur Specific [place] (1.001-1.035) Urine Protein (Negative) Urine Glucose (UA) (Negative) Urine Ketones (Negative) Urine Blood (Negative) Urine Nitrite (Negative) Urine Bilirubin (Negative) Urine Urobilinogen (<2.0) mg/dL Ur Leukocyte Esterase (Negative) Urine RBC (0-5) /hpf Urine WBC (0-5) /hpf Ur Squamous Epith Cells (0-4) /hpf 02/02/25 02/02/25 02/02/25 Range/Units 13:15 13:15 13:50 WBC (4.50-10.00) 10*3/uL RBC (4.10-5.20) 10*6/uL Hgb (12.0-15.0) g/dL Hct (37.2-46.3) % MCV (80.0-97.0) fL MCH (27.0-32.0) pg MCHC (32.0-37.0) g/dL Plt Count (140-440) 10*3/uL MPV (9.5-12.2) fL Immature Gran % (Auto) % Neutrophils % % Lymphocytes % % Monocytes % % Eosinophils % % Basophils % % Immature Gran # (0.00-0.04) 10*3/uL Neutrophils # (1.80-7.70) 10*3/uL Lymphocytes # (0.90-5.00) 10*3/uL Monocytes # (0.20-1.00) 10*3/uL Eosinophils # (0.04-0.35) 10*3/uL Basophils # (0.00-0.10) 10*3/uL Sodium (137-145) mmol/L Potassium (3.5-5.1) mmol/L Chloride (98-107) mmol/L Carbon Dioxide (22-30) mmol/L Anion Gap mmol/L BUN (7-17) mg/dL Creatinine (0.52-1.04) mg/dL Est GFR (CKD-EPI)AfAm (>60 ml/min/1.73 sqM) Est GFR (CKD-EPI)NonAf (>60 ml/min/1.73 sqM) Glucose (74-99) mg/dL Estimated Ave Glu mg/dL 197 mg/dL Hemoglobin A1c 8.5 H (<=6.0) % Plasma Lactic Acid Allen (0.7-2.0) mmol/L Calcium (8.4-10.2) mg/dL Total Bilirubin (0.2-1.3) mg/dL AST (14-36) U/L ALT (4-34) U/L Alkaline Phosphatase (38-126) U/L Troponin I <0.012 (0.000-0.034) ng/mL Total Protein (6.3-8.2) g/dL Albumin (3.5-5.0) g/dL Urine Color Colorless Urine Appearance Clear (Clear) Urine pH 7.0 (5.0-8.0) Ur Specific [place] 1.007 (1.001-1.035) Urine Protein Negative (Negative) Urine Glucose (UA) Negative (Negative) Urine Ketones Trace H (Negative) Urine Blood Negative (Negative) Urine Nitrite Negative (Negative) Urine Bilirubin Negative (Negative) Urine Urobilinogen <2.0 (<2.0) mg/dL Ur Leukocyte Esterase Large H (Negative) Urine RBC 2 (0-5) /hpf Urine WBC 16 H (0-5) /hpf Ur Squamous Epith Cells <1 (0-4) /hpf Disposition Clinical Impression: Vertigo, Weakness, Nausea & vomiting Disposition: ADMITTED IP TO THIS HOSP Condition: Stable Is patient prescribed a controlled substance at d/c from ED?: No Time of Disposition: 15:34 Decision to Admit Reason: Admit from EC Decision Date: 02/02/25 Decision Time: 15:34
[2025-02-02] MEDS ORDERED: MECLIZINE 25 MG TAB PO PRN (15:36)
[2025-02-02] MEDS: SODIUM CHLORIDE 0.9% 1,000 ML IV SCH (15:57)
[2025-02-02] MEDS ORDERED: DEXTROSE 50% SYRINGE 50 ML IVP PRN ×2 (16:30)
[2025-02-02] MEDS ORDERED: diphenhydrAMINE 50 MG/ML 1 ML VIAL IVP PRN (16:31)
[2025-02-02] MEDS: PANTOPRAZOLE 40 MG/10 ML VIAL IVP SCH (18:54)
[2025-02-02] MEDS: INSULIN LISPRO (HumaLOG) 100 UNIT/ML 10 mL VL SQ SCH (18:56)
[2025-02-02] MEDS: MECLIZINE 25 MG TAB PO SCH (19:00)
[2025-02-02 19:55] LABS: Glucose,Whole Blood 111 mg/dL (70-110)
[2025-02-02] MEDS: HEPARIN SODIUM,PORCINE 5,000 UNIT/ML 1 ML VIAL SQ SCH (21:23)
[2025-02-03] MEDS: hydrALAZINE HCL 20 MG/ML 1 ML VIAL IVP PRN (01:16)
--- NOTE | 2025-02-03 04:05 | HP ---
HISTORY AND PHYSICAL CHIEF COMPLAINT: Dizziness. HISTORY OF PRESENT ILLNESS: This is an 84-year-old woman with a past medical history of dizziness for several years, had increasing dizziness and vomiting for the last 3-4 days. The patient is unable to keep anything down. The patient is hard of hearing. The patient came to [facility], was admitted for evaluation and there is no history of any fever, rigors, chills. Stroke workup is being initiated. Cultures are negative so far. PAST MEDICAL HISTORY: History of chronic dizziness. Rest of the chart was also reviewed. HOME MEDICATIONS: Reviewed include metformin, doses and rest of medications are noted, not confirmed yet. ALLERGIES: Reviewed include Bactrim, rest of allergies noted. FAMILY HISTORY: History of diabetes mellitus type 2. SOCIAL HISTORY: No history of smoking or alcohol. REVIEW OF SYSTEMS: Fourteen-point review of systems is negative except as mentioned earlier. PHYSICAL EXAMINATION: VITAL SIGNS: Pulse 74, blood pressure n respirations 18. HEENT: Conjunctivae normal. ABDOMEN: Soft, nontender. LEGS: No edema. No swelling. NERVOUS SYSTEM: No nystagmus. Moves all 4. No focal deficits. LABORATORY DATA: Reviewed. ASSESSMENT: 1. Intractable dizziness possible exacerbation, rule out acute stroke. 2. Dehydration. 3. Hypertension, accelerated. 4. Diabetes mellitus, type 2. 5. Degenerative joint disease. 6. History of pulmonary embolism. 7. Sjogren syndrome. RECOMMENDATION: This is an 84-year-old woman presented with multiple complex medical issues. We will monitor the patient closely. Recommend to continue with IV fluids, symptomatic treatment. Guarded prognosis because of multiple complex medical issues. Further recommendations to follow. See orders for details. MMODL / IJN: [id number] / MTDD
[2025-02-03 05:57] LABS: Glucose,Whole Blood 120 mg/dL (70-110)
--- NOTE | 2025-02-03 09:49 | US ---
EXAMINATION TYPE: US carotid duplex BILAT DATE OF EXAM: 02/03/2025 COMPARISON: NONE CLINICAL INDICATION: Female, 84 years old with history of stroke; Hx HTN, DM, and new onset difficult y speaking Additional History: .... TECHNIQUE: Grayscale, color Doppler and spectral Doppler evaluation of the bilateral carotid systems and vertebral arteries. Indirect Doppler criteria was utilized. FINDINGS: EXAM MEASUREMENTS: RIGHT: Peak Systolic Velocity (PSV) cm/sec ----- Right CCA: 88 ----- Right ICA: 106 ----- Right ECA: 151 ICA/CCA ratio: 1.2 RIGHT: End Diastole cm/sec ----- Right CCA: 8 ----- Right ICA: 11 ----- Right ECA: 0 LEFT: Peak Systolic Velocity (PSV) cm/sec ----- Left CCA: 92 ----- Left ICA: 118 ----- Left ECA: 121 ICA/CCA ratio: 1.3 LEFT: End Diastole cm/sec ----- Left CCA: 13 ----- Left ICA: 20 ----- Left ECA: 8 VERTEBRALS (direction of flow): Right Vertebral: Antegrade Left Vertebral: Antegrade Rhythm: Normal DIRECTOR FOOD SAFETY NOTES: No intimal thickening, plaque, or elevated velocities seen. Color Doppler imaging shows patency with blood flow throughout the carotid artery. Spectral waveforms are within normal limits. IMPRESSION: Right: Less than 50% stenosis of the carotid bifurcation. Left: Less than 50% stenosis of the carotid bifurcation. Criteria for Assigning % of Stenosis / Diameter reduction (Estimation based on the indirect measurements of the internal carotid artery velocities (ICA PSV). 1. Normal (no stenosis)=ICA PSV < 180 cm/s: ratio < 2.0: ICA EDV<40 cm/s. 2. Less than 50% stenosis=ICA PSV < 180 cm/s: ratio < 2.0: ICA EDV<40 cm/s. 3. 50 to 69% stenosis=ICA PSV of 180 to 230 cm/s: ration 2.0 ? 4.0: ICA EDV 40-100 cm/s. PSV 125-180 cm/sec and ICA/CCA PSV Ratio ? 2.0 is also consistent with 50-69% stenosis 4. Greater than 70% stenosis to near occlusion= ICA PSV > 230 cm/s: ratio > 4.0: ICA EDV > 100 cm/s. 5. Near occlusion= ICA PSV velocities may be low or undetectable: variable ratio and ICA EDV. 6. Total occlusion=unable to detect flow. [facility], , 02/03/2025 9:47 AM
[2025-02-03 09:58] LABS: Basophils # (A) 0.07 X 10*3/uL (0.00-0.10); Basophils % (A) 1.0 %; Eosinophils # (A) 0.04 X 10*3/uL (0.04-0.35); Eosinophils % (A) 0.6 %; HCT 39.5 % (37.2-46.3); HGB 12.7 g/dL (12.0-15.0); Immature Grans, Automated 0.40 %; Lymphocytes # (A) 3.12 X 10*3/uL (0.90-5.00); Lymphocytes % (A) 44.8 %; MCH 28.9 pg (27.0-32.0); MCHC 32.2 g/dL (32.0-37.0); MCV 90.0 FL (80.0-97.0); Monocytes # (A) 1.05 X 10*3/uL (0.20-1.00); Monocytes % (A) 15.1 %; NRBC Per 100 WBC 0 X 10*3/uL (0.00-0.01); Neutrophils # (A) 2.65 X 10*3/uL (1.80-7.70); Neutrophils % (A) 38.1 %; Platelet Count 253 X 10*3/uL (140-440); RBC 4.39 X 10*6/uL (4.10-5.20); RDW 12.9 % (11.5-14.5); WBC 6.96 X 10*3/uL (4.50-10.00)
[2025-02-03 10:36] LABS: ALT 39 U/L (8-44); AST 44 U/L (13-35); Albumin 3.8 g/dL (3.8-4.9); Albumin/Globulin Ratio 1.31 Ratio (1.60-3.17); Alkaline Phosphatase 106 U/L (41-126); Anion Gap 14.70 mmol/L (4.00-12.00); BUN/Creat Ratio 12.67 Ratio (12.00-20.00); Blood Urea Nitrogen 11.4 mg/dL (9.0-27.0); Calcium 9.9 mg/dL (8.7-10.3); Carbon Dioxide 18.3 mmol/L (21.6-31.8); Chloride 108 mmol/L (96-109); Globulin 2.9 g/dL (1.6-3.3); Glucose 125 mg/dL (70-110); Potassium 3.2 mmol/L (3.5-5.5); Sodium 141 mmol/L (135-145); Total Protein 6.7 g/dL (6.2-8.2)
[2025-02-03] MEDS: ONDANSETRON 4 MG/2 ML VIAL IVP PRN (10:56)
[2025-02-03 12:22] LABS: Glucose,Whole Blood 122 mg/dL (70-110)
[2025-02-03] MEDS ORDERED: Potassium Replacement Protocol 1 EACH MISC MISCELLANE PRN (12:40)
[2025-02-03] MEDS: POTASSIUM CHLORIDE ER 20 MEQ TAB.ER PO SCH (13:11)
[2025-02-03] MEDS: ASPIRIN 81 MG PO STA (14:14)
[2025-02-03] MEDS ORDERED: ALBUTEROL NEBULIZED 2.5 MG/3 ML INHALATION PRN (15:48)
[2025-02-03] MEDS ORDERED: SENNOSIDES 8.6 MG TAB PO PRN (15:48)
[2025-02-03] MEDS ORDERED: SODIUM CHLORIDE 0.9% 1,000 ML with POTASSIUM CHLORIDE 40 MEQ IV SCH (15:50)
[2025-02-03 17:14] LABS: Glucose,Whole Blood 125 mg/dL (70-110)
[2025-02-03] MEDS: 0.9% NACL WITH KCL 40 MEQ/L 1,000 ML IV SCH (17:41)
[2025-02-03 20:51] LABS: Glucose,Whole Blood 248 mg/dL (70-110)
[2025-02-03] MEDS: ATORVASTATIN 80 MG TAB PO SCH (21:24)
[2025-02-03] MEDS: MAGNESIUM OXIDE 400 MG TAB PO SCH (21:27)
--- NOTE | 2025-02-03 23:56 | PN ---
PROGRESS NOTE DATE OF SERVICE: 02/03/2025 SUBJECTIVE: This is an 84-year-old woman who was admitted with significant dizziness. Also, some change in mental status. The patient also complains of weakness. Also, the patient was evaluated for possible stroke. Also, Neurology consultation. There is no history of any fever or rigors. PAST MEDICAL HISTORY: Reviewed. REVIEW OF SYSTEMS: Fourteen-point review of systems is negative, except as mentioned earlier. CURRENT MEDICATIONS: Reviewed. PHYSICAL EXAMINATION: VITAL SIGNS: Pulse 84, blood pressure 115/76, respirations 15. CHEST: Clear to auscultation. CARDIOVASCULAR: S1 and S2. ABDOMEN: Soft. NERVOUS SYSTEM: Diffusely weak, otherwise minimal incoordination of the fingers present. LABORATORY DATA: Potassium 3.2. UA noted. ASSESSMENT: 1. Intractable dizziness, possible exacerbation, possible brainstem stroke. 2. Dehydration. 3. Hypokalemia. 4. Hypertension, accelerated. 5. Diabetes mellitus, type 2. 6. Degenerative joint disease. 7. History of pulmonary embolism. 8. Sjogren syndrome. RECOMMENDATIONS AND DISCUSSION: Recommend to continue current management and continue symptomatic treatment. Otherwise, I would also recommend continue the antiplatelet agents. Replace potassium. I would also recommend MRI of the brain to rule out the possibility of any acute stroke. Guarded prognosis. Further recommendations to follow. MMODL / IJN: [id number] /
--- NOTE | 2025-02-04 02:39 | P.CNNES ---
History of Present Illness Consult date: 02/03/25 Requesting physician: Teresa Saleem Reason for Consult: intractable vertigo History of Present Illness: Patient is a 84-year-old right-handed female, with history of chronic recurrent vertigo, diabetes, hypertension came to the hospital by ambulance yesterday at 11:55 AM for worsening vertigo. Patient's family members were present, who provided with a history. family mentions that patient has history of i ntermittent vertigo off and on for about 25 years. This would act up every few months lasting for a couple days. 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 Patient's family brought her to the ER on 01/31/2025 in the morning she tried her at the word and Zofran but symptoms persisted. The vertigo was similar to her previous complaints, but was more severe. Patient was noticed to have no focal deficits at that time as per ER report. Patient was discharged home from the ER. Patient's symptoms did not improve, therefore family called EMS and she was brought to the hospital yesterday on Tuesday. patient has not been able to eat or drink because of severe nausea and vomiting. As per EMS flowsheet when they arrived, patient was laying in the bed. Patient was alert oriented x 4 and noted to be extremely dizzy and has history of vertigo. Patient was seen for this on but today was worse. Blood glucose was 190 mg/dL. Twelve-lead EKG was normal. Patient's vitals at the scene was blood pressure 193/108, pulse rate 82 respiration 18 saturation 100%. Repeat blood pressure 177/95. Blood pressure on arrival 182/87 which has been staying up. Blood test shows normal CBC, sodium normal potassium 3.3, normal renal functions. AST 49, ALT 40. They are improving. UA is negative. CT head showed no acute intracranial process. Nonspecific white matter changes, likely secondary to chronic small vessel ischemic disease. I personally reviewed CT head, agree with the findings. Visualized paranasal sinuses and external auditory canals are clear. EKG showed sinus rhythm. Carotid Doppler revealed less than 50% stenosis of carotid bifurcation. Antegrade flow in both vertebral arteries. Family mentions that patient has recent history of bilateral ear infection, right greater than left about 6 weeks ago. She has chronic hearing loss, but she was almost completely deaf at that time. She was seen by ENT specialist Dr. Erik Bingham at [facility]. Patient underwent audiological testing. She was given prednisone and antibiotics and her hearing improved back to baseline after a few days. Patient has a follow-up with ENT on 02/12/2025. she does use hearing aids. patient has history of diabetes for last 10-15 years. Also has hypertension. No history of tobacco or alcohol use. Home medications include lisinopril 40 mg, melatonin, amlodipine 5 mg, meclizine 12.5 mg carvedilol, Paxil 50 mg, metformin 750 mg at bedtime, Pepcid, vitamin D3. Patient does not take any antiplatelet medication. Patient has history of hyperlipidemia, but Crestor w as stopped about a year ago. patient also has very sensitive stomach and takes Prevacid for a long time. Patient has history of 2 back surgeries since 2023 which she takes ibuprofen and Aleve occasionally. Family mentions that patient has issues with bronchitis, sinus dripping or packing up even since before . at present patient still feels dizzy which she relates 03/17. She states that at least she is able to hold something in her stomach not vomiting. Patient complains of generalized weakness. Review of Systems all pertinent positive and negative review of systems mentioned in the HPI, otherwise unremarkable. Past Medical History Past Medical History: Diabetes Mellitus, Eye Disorder, GERD/Reflux, Hypertension, Osteoarthritis (OA), Pulmonary Embolus (PE) Additional Past Medical History / Comment(s): Shogren's, tremors, hx of pneumonia or bronchitis in Aug 2016. bilat eye cataract. Thin skin that bruises very easily, finishing antibiotic today for recent UTI, low back pain down left leg especially w/standing History of Any Multi-Drug Resistant Organisms: None Reported Past Surgical History: Back Surgery, Tubal Ligation Additional Past Surgical History / Comment(s): bilat cataract surgery. Past Anesthesia/Blood Transfusion Reactions: Postoperative Nausea & Vomiting (PONV) Past Psychological History: Anxiety Smoking Status: Never smoker Past Alcohol Use History: None Reported Past Drug Use History: None Reported - Past Family History Mother Family Medical History: Diabetes Mellitus, Hyperlipidemia, Myocardial Infarction (MT) Father Family Medical History: Cancer Additional Family Medical History / Comment(s): SKIN CANCER Daughter(s) Family Medical History: Cancer Additional Family Medical History / Comment(s): Breast Cancer Medications and Allergies Home Medications Medication Instructions Recorded Confirmed Type Docusate [Colace] 200 mg PO DAILY PRN 09/20/17 02/02/25 History Melatonin [Melatonin Tr] 10 mg PO HS 09/20/17 02/02/25 History lisinopriL 40 mg PO HS 09/20/17 02/02/25 History Meclizine [Antivert] 12.5 mg PO TID PRN 03/27/20 02/02/25 History amLODIPine [Norvasc] 5 mg PO HS 03/27/20 02/02/25 History carvediloL [Coreg] 3.125 mg PO BID 03/27/20 02/02/25 History Cetirizine HCl [Zyrtec] 10 mg PO HS 04/08/20 02/02/25 History Acetaminophen [Tylenol Arthritis] 1,300 mg PO Q6H PRN 02/02/25 02/02/25 History Albuterol Inhaler [Ventolin Hfa 2 puff INHALATION RT-Q4H PRN 02/02/25 02/02/25 History Inhaler] Cholecalciferol [Vitamin D3 (25 75 mcg PO DAILY 02/02/25 02/02/25 History Mcg = 1000 Iu)] Cranberry Fruit Extract [Cranberry] 500 mg PO HS 02/02/25 02/02/25 History Diclofenac Sodium Gel [Voltaren 1% 1 applic TOPICAL QID PRN 02/02/25 02/02/25 History Gel] Famotidine 40 mg PO HS 02/02/25 02/02/25 History Ibuprofen [Motrin Ib] 400 mg PO Q6H PRN 02/02/25 02/02/25 History Lansoprazole [Prevacid 24Hr OTC] 30 mg PO DAILY 02/02/25 02/02/25 History Magnesium Oxide [Mag-Ox] 400 mg PO HS 02/02/25 02/02/25 History PARoxetine HCL 15 mg PO DAILY 02/02/25 02/02/25 History Pseudoephedrine 12Hr [Sudafed 12 120 mg PO Q12HR PRN 02/02/25 02/02/25 History Hour] Sennosides [Senokot] 8.6 mg PO DAILY PRN 02/02/25 02/02/25 History Turmeric Root Extract [Turmeric] 750 mg PO DAILY 02/02/25 02/02/25 History Vitamin C With Zinc 1,000mg/15mg 1 tab PO DAILY 02/02/25 02/02/25 History bisacodyL [Dulcolax] 10 mg RECTAL DAILY PRN 02/02/25 02/02/25 History guaiFENesin SYRUP 100MG/5ML 200 mg PO Q4H PRN 02/02/25 02/02/25 History [Robitussin] guaiFENesin [Mucinex] 600 mg PO Q12H PRN 02/02/25 02/02/25 History lidocaine HCL [Icy Hot Max] 1 applic TOPICAL QID PRN 02/02/25 02/02/25 History metFORMIN HCL [metFORMIN HCL ER] 750 mg PO HS 02/02/25 02/02/25 History Allergies Allergy/AdvReac Type Severity Reaction Status Date / Time sulfamethoxazole Allergy Unknown Nausea & Verified 02/02/25 17:10 [From Bactrim] Vomiting trimethoprim [From Bactrim] Allergy Unknown Nausea & Verified 02/02/25 17:10 Vomiting Tetracyclines Allergy Nausea & Verified 02/02/25 17:10 Vomiting amoxicillin trihydrate AdvReac Nausea & Verified 02/02/25 17:10 [From Augmentin] Vomiting azithromycin [From Zithromax] AdvReac Nausea & Verified 02/02/25 17:10 Vomiting codeine AdvReac Nausea & Verified 02/02/25 17:10 Vomiting potassium clavulanate AdvReac Nausea & Verified 02/02/25 17:10 [From Augmentin] Vomiting tetracycline AdvReac Nausea & Verified 02/02/25 17:10 Vomiting tramadol AdvReac Nausea & Verified 02/02/25 17:10 Vomiting Physical Examination - Vital Signs Vital Signs: Vital Signs Temp Pulse Pulse Resp BP BP Pulse Ox 02/03/25 10:05 74 144/79 02/03/25 08:56 65 02/03/25 07:25 97.6 F 65 15 172/88 97 02/03/25 00:59 97.7 F 70 18 179/74 97 02/02/25 19:11 98.4 F 73 16 194/82 97 02/02/25 17:20 96.8 F L 78 16 183/99 97 06/28/25 15:00 74 18 181/90 97 02/02/25 14:06 74 16 189/88 97 02/02/25 13:00 72 16 195/91 98 Intake and Output 02/02/25 02/03/25 02/03/25 22:59 06:59 14:59 Intake Total 118 Output Total 200 550 Balance -200 -550 118 Intake: Oral 118 Output: Urine 200 550 Other: Voiding Method External Catheter External Catheter External Catheter Weight 68.039 kg Patient is an elderly female, who appears to be in [id number]-[id number] distress because of dizziness, nausea and vomiting. She is keeping cold cloth on her eyes. Patient is alert awake oriented to time place and person. Speech appears mildly dysarthric and slow, but family believes that whenever she is sick, her speech goes like that. They do not believe any slurring or difficulty speaking or changes in her speech. Patient can name and repeat very well. Attention, concentration is slightly decreased and fund of knowledge is adequate. detailed cognitive function testing deferred. On cranial nerve examination, pupils are equal, round and reacting to light, visual tanner are full on confrontation, with no neglect on double simultaneous stimulation. Extraocular muscles are intact with no nystagmus. Face is symmetric, tongue protrudes to the midline. Palatal elevation and sensation normal, hearing is at least moderately decreased bilaterally and shoulder shrug normal, facial sensation normal. On muscle strength testing, there is left pronator drift and the left arm does not hit the bed, goes down by 60. Patient also has left leg drift as compared to the right. Muscle strength is normal in the right arm and right leg. On the left side, manager of recruiting 5-, biceps 5-, triceps 5-, hip flexion 3+4-, ankle dorsiflexion 3+4-. Deep tendon reflexes are asymmetric (right/left) biceps 1+/1+, brachioradialis 2/2, knees 1+/0, ankles 0/1 and plantar is downgoing on the right, up on the left. Sensory to touch is equal with no neglect on double simultaneous stimulation. Cerebellar function showed ataxia for [id number] testing on the left side but not on the right. No ataxia for [id number] testing on either side but was very slow. Tone and bulk of muscles normal. Gait deferred.. On general examination, there is no carotid bruit or murmur, S1-S2 audible. Chest is clear on consultation. Abdomen is soft nontender. No organomegaly, bowel sounds present. Peripheral pulses are present. No peripheral edema. Results - Laboratory Findings CBC and BMP: 02/03/25 05:47 02/03/25 05:47 Abnormal Lab Findings: Abnormal Labs 02/02/25 02/02/25 02/02/25 13:15 13:15 13:15 Monocytes # Eosinophils # 0.02 L Potassium 3.3 L Carbon Dioxide 19 L Anion Gap Glucose 139 H POC Glucose (mg/dL) Hemoglobin A1c 8.5 H AST 49 H ALT 40 H Albumin/Globulin Ratio Urine Ketones Ur Leukocyte Esterase Urine WBC 02/02/25 02/02/25 02/03/25 13:50 19:53 05:47 Monocytes # Eosinophils # Potassium 3.2 L Carbon Dioxide 18.3 L Anion Gap 14.70 H Glucose 125 H POC Glucose (mg/dL) 111 H Hemoglobin A1c AST 44 H ALT Albumin/Globulin Ratio 1.31 L Urine Ketones Trace H Ur Leukocyte Esterase Large H Urine WBC 16 H 02/03/25 02/03/25 02/03/25 05:47 05:55 12:20 Monocytes # 1.05 H Eosinophils # Potassium Carbon Dioxide Anion Gap Glucose POC Glucose (mg/dL) 120 H 122 H Hemoglobin A1c AST ALT Albumin/Globulin Ratio Urine Ketones Ur Leukocyte Esterase Urine WBC Assessment and Plan Assessment: * Probable acute to subacute ischemic stroke with left hemiparesis, vertigo, nausea vomiting. Patient also has recent history of transient complete hearing loss. Rule out AICA syndrome. * Long-standing history of recurrent vertigo off and on for last 25 years. * Chronic hearing loss * Hyperlipidemia * Diabetes * Hypertension * History of back surgery 2 * Acid reflux disease Plan: * Patient's symptoms were highly suggestive of recurrent vertigo from chronic peripheral vascular dysfunction, rule out Mnire's disease. However examination revealed focal findings with left hemiparesis. Patient probably has acute to subacute ischemic stroke. Rule out cerebellar stroke versus AICA syndrome. * Patient's current NIH stroke scale is 4. Patient not a candidate for TNK, as her symptoms have been present for 2 days prior to arrival. No large vessel occlusion noted on CTA. * CTA of head and neck revealed no evidence of dissection of the cervical internal carotid arteries or vertebral arteries. No evidence of significant stenosis at the carotid bifurcations. No evidence of intracranial high-grade stenosis or intracranial aneurysm. Hypoplastic right A1 segment. Diminutive left intracranial vertebral artery. The left vertebral artery may terminate as the posterior inferior cerebellar artery. * Start aspirin 325 mg daily. If acute CVA is confirmed, then I would suggest placing her on DAPT. Patient has very sensitive stomach therefore for now we will keep her on monotherapy with aspirin. * Patient currently on Protonix 40 mg IV push twice a day for gastric ulcer prophylaxis. * MRI of the brain without contrast, evaluate for acute CVA * Carotid Doppler revealed less than 50% stenosis of bilateral carotid bifurcation. Antegrade flow in both vertebral arteries. * 2-D echo with bubble study to rule out PFO * Fasting a.m. lipid panel * Hemoglobin A1c 8.5, suggestive of poorly controlled diabetes. Recommend optimize control of diabetes to target A1c < 7.0. * Permissive hypertension for next 24-48 hours * Neuro checks every 4 hours. * Telemetry monitoring rule out any arrhythmia * PT, OT, speech therapy * DVT prophylaxis: Heparin 5000 units subcu every 12 hours * Continue meclizine as stated and Zofran. * Dr. Jin Mitchell to resume neurology service in the morning. * Discussed with family members in detail. Thank you for the consult. Time with Patient: Greater than 30
[2025-02-04 05:43] LABS: Glucose,Whole Blood 167 mg/dL (70-110)
[2025-02-04 07:53] LABS: Basophils # (A) 0.06 X 10*3/uL (0.00-0.10); Basophils % (A) 0.9 %; Eosinophils # (A) 0.06 X 10*3/uL (0.04-0.35); Eosinophils % (A) 0.9 %; HCT 38.9 % (37.2-46.3); HGB 12.5 g/dL (12.0-15.0); Immature Grans, Automated 0.70 %; Lymphocytes # (A) 2.86 X 10*3/uL (0.90-5.00); Lymphocytes % (A) 42.3 %; MCH 29.0 pg (27.0-32.0); MCHC 32.1 g/dL (32.0-37.0); MCV 90.3 FL (80.0-97.0); Monocytes # (A) 1.08 X 10*3/uL (0.20-1.00); Monocytes % (A) 16.0 %; NRBC Per 100 WBC 0 X 10*3/uL (0.00-0.01); Neutrophils # (A) 2.65 X 10*3/uL (1.80-7.70); Neutrophils % (A) 39.2 %; Platelet Count 248 X 10*3/uL (140-440); RBC 4.31 X 10*6/uL (4.10-5.20); RDW 13.1 % (11.5-14.5); WBC 6.76 X 10*3/uL (4.50-10.00)
[2025-02-04 08:05] LABS: Anion Gap 10.10 mmol/L (4.00-12.00); BUN/Creat Ratio 15.25 Ratio (12.00-20.00); Blood Urea Nitrogen 12.2 mg/dL (9.0-27.0); Calcium 10.0 mg/dL (8.7-10.3); Carbon Dioxide 18.9 mmol/L (21.6-31.8); Chloride 109 mmol/L (96-109); Cholesterol 194.00 mg/dL (0.00-200.00); Glucose 168 mg/dL (70-110); HDL Cholesterol 27.80 mg/dL (40.00-60.00); LDL Cholesterol,Calculated 119.8 mg/dL (0.0-131.0); Potassium 3.7 mmol/L (3.5-5.5); Sodium 138 mmol/L (135-145); Triglycerides 232.00 mg/dL (0.00-149.00); VLDL Calculation 46.40 mg/dL (5.00-40.00)
[2025-02-04] MEDS: ASPIRIN 325 MG TAB PO SCH (08:40)
[2025-02-04] MEDS ORDERED: ZINC PO SCH (09:00)
[2025-02-04] MEDS ORDERED: [UNRECOGNIZED DRUG - OTHER] PO SCH (09:00)
[2025-02-04 12:08] LABS: Glucose,Whole Blood 207 mg/dL (70-110)
--- NOTE | 2025-02-04 13:44 | MR ---
EXAMINATION TYPE: MR brain wo/w con DATE OF EXAM: 02/04/2025 10:30 AM COMPARISON: 04/21/2010. CLINICAL INDICATION: Female, 84 years old with history of stroke like symptoms; PHH, Intractable vert igo, N & V, stroke like symptoms. TECHNIQUE: Multi planar, multi sequence imaging was performed through the brain including: T1, T2, In version recovery, susceptibility weighted imaging and gradient echo imaging and Diffusion weighted im aging. The patient was then given intravenous contrast and multi planar, T1 fat-saturation images wer e obtained. IV Contrast: 6.5 mL Gadobutrol FINDINGS: Restricted diffusion within the medial left temporal lobe The villavicencio-white junctions, ventricular system, basal cisterns appear unremarkable. Intracranial arter ial flow voids are maintained. Midline structures show no abnormality. Scattered foci of high T2 sign al intensity are seen within the periventricular white matter. The susceptibility weighted images do not reveal any evidence for micro-hemorrhage. After administration of gadolinium, no abnormal enhance ment is seen. The bone marrow signal is within normal limits. Paranasal sinuses and mastoid air cells: High T2 signal in the bilateral mastoid air cells. Visualized orbits: Orbital contents are intact. IMPRESSION: 1. Acute/subacute CVA involving the medial left temporal lobe. No evidence of intracranial mass, or a bnormal enhancement. 2. Nonspecific white matter changes, likely related to small vessel ischemic disease. 3. Trace bilateral mastoid air cell effusion. [facility], , 02/04/2025 1:42 PM
--- NOTE | 2025-02-04 15:58 | P.PN ---
Subjective Progress Note Date: 02/04/25 I am seeing the patient for the first time during this hospital visit. Please refer to Dr. Almeida's note for further details. The daughter is at bedside who helps with some of the history. According to the daughter she stated that the patient has been having severe dizziness diplopia with vomiting for the last 1 week. Upon examination by Dr. Almeida it seems that the patient was noted to have left-sided weakness. The daughter does feel like she might be somewhat more slurred than baseline. Patient is getting stroke work-up. Objective - Vital Signs Vital signs: Vital Signs Temp 98.1 F 02/04/25 14:35 Pulse 78 02/04/25 14:35 Resp 16 02/04/25 14:35 BP 163/81 02/04/25 14:35 Pulse Ox 96 02/04/25 14:35 FiO2 Intake & Output 02/03/25 02/04/25 02/04/25 18:59 06:59 18:59 Intake Total 236 100 Output Total 550 2000 700 Balance -314 -2000 -342 Intake: Oral 236 100 Output: Urine 550 2000 700 Other: Voiding Method External Catheter External Catheter External Catheter - Exam General: Laying in bed and is not in acute distress. Neuro: Patient is awake alert oriented to self place and time. Is following simple commands. No aphasia Equal reactive to light. Visual tanner are full to confrontation. Extraocular movements intact no nystagmus no facial weakness. Patient does have positive dysarthria Motor: The strength over the right side is 5 out of 5. The left side is 4. Sensation is normal to touch throughout Cerebellar she performed it very slow so hard to assess true ataxia or dysmetria. - Labs CBC & Chem 7: 02/04/25 04:22 02/04/25 04:22 Labs: Abnormal Lab Results - Last 24 Hours (Table) 02/03/25 02/03/25 02/04/25 Range/Units 17:13 20:48 04:22 MPV (9.5-12.2) FL Immature Gran # (0.00-0.04) X 10*3/uL Monocytes # (0.20-1.00) X 10*3/uL Carbon Dioxide 18.9 L (21.6-31.8) mmol/L Glucose 168 H (70-110) mg/dL POC Glucose (mg/dL) 125 H 248 H (70-110) mg/dL Triglycerides 232.00 H (0.00-149.00) mg/dL VLDL Cholesterol, Calc 46.40 H (5.00-40.00) mg/dL HDL Cholesterol 27.80 L (40.00-60.00) mg/dL 02/04/25 02/04/25 02/04/25 Range/Units 04:22 05:41 11:54 MPV 12.3 H (9.5-12.2) FL Immature Gran # 0.05 H (0.00-0.04) X 10*3/uL Monocytes # 1.08 H (0.20-1.00) X 10*3/uL Carbon Dioxide (21.6-31.8) mmol/L Glucose (70-110) mg/dL POC Glucose (mg/dL) 167 H 207 H (70-110) mg/dL Triglycerides (0.00-149.00) mg/dL VLDL Cholesterol, Calc (5.00-40.00) mg/dL HDL Cholesterol (40.00-60.00) mg/dL Microbiology - Last 24 Hours (Table) 02/02/25 13:50 Urine Culture - Final Urine,Clean Catch 02/02/25 17:04 Blood Culture - Preliminary Blood Assessment and Plan Assessment: * Acute to subacute ischemic stroke with left hemiparesis, vertigo, nausea vomiting, dysarthria. Patient also has recent history of transient complete hearing loss. * Long-standing history of recurrent vertigo off and on for last 25 years. * Chronic hearing loss * Hyperlipidemia * Diabetes * Hypertension * History of back surgery 2 * Acid reflux disease Plan: * Patient's current NIH stroke scale is 4. Patient not a candidate for TNK, as her symptoms have been present for 2 days prior to arrival. No large vessel occlusion noted on CTA. * CTA of head and neck revealed no evidence of dissection of the cervical internal carotid arteries or vertebral arteries. No evidence of significant stenosis at the carotid bifurcations. No evidence of intracranial high-grade stenosis or intracranial aneurysm. Hypoplastic right A1 segment. Diminutive left intracranial vertebral artery. The left vertebral artery may terminate as the posterior inferior cerebellar artery. * Start aspirin 325 mg daily. Patient has very sensitive stomach therefore for now we will keep her on monotherapy with aspirin. I spoke with the patient daughter and she felt she was in an agreement for only monotherapy and to avoid dual antiplatelet especially with her GI symptoms and her age. * Patient currently on Protonix 40 mg IV push twice a day for gastric ulcer prophylaxis. * MRI of the brain without contrast, evaluate for acute CVA: Appears she had acute ischemic stroke in right pontine region. Pending official report. * Carotid Doppler revealed less than 50% stenosis of bilateral carotid bifurcation. Antegrade flow in both vertebral arteries. * 2-D echo with bubble study to rule out PFO. If negative consider transesophageal echocardiogram. * Fasting a.m. lipid panel: TG 232, cholestrol 194, LDL 119 and HDL 27. Recommend LDL <70 in stroke. Current on lipitor 80mg qhs. * Hemoglobin A1c 8.5, suggestive of poorly controlled diabetes. Recommend optimize control of diabetes to target A1c < 7.0. * Continue meclizine as stated and Zofran. * Permissive hypertension for next 24 hours * Neuro checks every 4 hours. * Telemetry monitoring rule out any arrhythmia. Recommend 30-day event monitor * I consulted PT, OT, speech therapy * DVT prophylaxis: Heparin 5000 units subcu every 12 hours The plan discussed with the patient and her daughter was at bedside Time with Patient: Less than 30
[2025-02-04 17:47] LABS: Glucose,Whole Blood 195 mg/dL (70-110)
[2025-02-04 20:25] LABS: Glucose,Whole Blood 180 mg/dL (70-110)
--- NOTE | 2025-02-05 04:56 | P.PN ---
Subjective Progress Note Date: 02/04/25 This is an 84-year-old female admitted with significant dizziness and also change in mental status with generalized weakness. Neurology following with concerns of CVA and is scheduled to undergo MRI today. Patient is afebrile with no reports of chest pain or shortness of breath. Patient does have occasional nausea and will continue supportive care. Awaiting PT/OT therapy evaluation as well. Review of systems: Constitutional: No reports of fatigue, fever, or chills Cardiovascular: No reports of chest pain or palpitations Respiratory: No reports of shortness of breath or cough GI: reports of occasional nausea, no reports of vomiting, no diarrhea : No reports of dysuria or retention Neurovascular: reports of generalized weakness, reports continued dizziness intermittently All medications have been reviewed PHYSICAL EXAMINATION: GENERAL: The patient is alert and oriented x3, Well developed, elderly appearing, ill-appearing HEENT: Pupils are round and equally reacting to light. EOMI. no scleral icterus. No conjunctival pallor. Normocephalic, atraumatic. No pharyngeal erythema. No thyromegaly. CARDIOVASCULAR: S1 and S2 muffled PULMONARY: diminished breath sounds bilaterally with no wheezing or rhonchi noted. ABDOMEN: soft. Nontender on exam. non-distended, normoactive bowel sounds. No palpable organomegaly. MUSCULOSKELETAL: No joint swelling or deformity. EXTREMITIES: No cyanosis, clubbing, or pedal edema. NEUROLOGICAL: Gross neurological examination did not reveal any focal deficits. Diffuse weakness SKIN: No rashes. Assessment: Intractable dizziness, possible exacerbation possible brain stem CVA, awaiting MRI Dehydration Hypokalemia, improved after replacement Hypertension, accelerated on admission Diabetes mellitus, type II Degenerative joint disease history History of PE Sjogren syndrome GI prophylaxis DVT prophylaxis No code Plan: Recommend to continue with current medications and management with neurology following scheduled to undergo MRI of the brain today Continue with supportive care and antinausea medications Recommend PT/OT therapy evaluation Continue monitoring Accu-Cheks AC and at bedtime and will continue with current sliding scale insulin regimen and adjust accordingly Case management/social work to follow in the event patient will require ECF on discharge Due to multiple complex medical issues, overall prognosis is guarded The impression and plan of care has been dictated by Cris Lester, nurse practitioner as directed. Dr. Aldo MD I have performed a history and examination and MDM of this patient, discussed the same with the dictator, and agree with the dictator's assessment and plan as written ,documented as a scribe. Based on total visit time, I have performed more than 50% of the visit. Any additional findings or plans will be noted. Objective - Vital Signs Vital signs: Vital Signs Temp 98.1 F 02/04/25 14:35 Pulse 78 02/04/25 14:35 Resp 16 02/04/25 14:35 BP 163/81 02/04/25 14:35 Pulse Ox 96 02/04/25 14:35 FiO2 Intake & Output 02/03/25 02/04/25 02/04/25 18:59 06:59 18:59 Intake Total 236 100 Output Total 550 2000 700 Balance -314 -2000 -600 Intake: Oral 236 100 Output: Urine 550 2000 700 Other: Voiding Method External Catheter External Catheter External Catheter - Labs CBC & Chem 7: 02/04/25 04:22 02/04/25 04:22 Labs: Abnormal Lab Results - Last 24 Hours (Table) 02/03/25 02/03/25 02/04/25 Range/Units 17:13 20:48 04:22 MPV (9.5-12.2) FL Immature Gran # (0.00-0.04) X 10*3/uL Monocytes # (0.20-1.00) X 10*3/uL Carbon Dioxide 18.9 L (21.6-31.8) mmol/L Glucose 168 H (70-110) mg/dL POC Glucose (mg/dL) 125 H 248 H (70-110) mg/dL Triglycerides 232.00 H (0.00-149.00) mg/dL VLDL Cholesterol, Calc 46.40 H (5.00-40.00) mg/dL HDL Cholesterol 27.80 L (40.00-60.00) mg/dL 02/04/25 02/04/25 02/04/25 Range/Units 04:22 05:41 11:54 MPV 12.3 H (9.5-12.2) FL Immature Gran # 0.05 H (0.00-0.04) X 10*3/uL Monocytes # 1.08 H (0.20-1.00) X 10*3/uL Carbon Dioxide (21.6-31.8) mmol/L Glucose (70-110) mg/dL POC Glucose (mg/dL) 167 H 207 H (70-110) mg/dL Triglycerides (0.00-149.00) mg/dL VLDL Cholesterol, Calc (5.00-40.00) mg/dL HDL Cholesterol (40.00-60.00) mg/dL Microbiology - Last 24 Hours (Table) 02/02/25 13:50 Urine Culture - Final Urine,Clean Catch 02/02/25 17:04 Blood Culture - Preliminary Blood
[2025-02-05 06:00] LABS: Glucose,Whole Blood 162 mg/dL (70-110)
[2025-02-05 12:24] LABS: Glucose,Whole Blood 292 mg/dL (70-110)
--- NOTE | 2025-02-05 12:59 | P.PN ---
Subjective Progress Note Date: 02/05/25 Principal diagnosis: Patient seen and examined at bedside today. She still complains of dizziness. Brain MRI shows acute/subacute CVA involving the medial left temporal lobe, mult iple foci of restricted diffusion within the right nick also compatible with acute/subacute CVA, correlate for embolic phenomenon Objective - Vital Signs Vital signs: Vital Signs Temp 97.7 F 02/05/25 07:00 Pulse 74 02/05/25 07:00 Resp 16 02/05/25 07:00 BP 183/98 02/05/25 07:00 Pulse Ox 99 02/05/25 07:00 FiO2 Intake & Output 02/04/25 02/05/25 02/05/25 18:59 06:59 18:59 Intake Total 100 Output Total 1700 1300 900 Balance -1600 -1300 -900 Intake: Oral 100 Output: Urine 1700 1300 900 Other: Voiding Method External Catheter External Catheter - Exam General: Laying in bed and is not in acute distress. Neuro: Patient is awake alert oriented to self place and time. Is following simple commands. No aphasia Equal reactive to light. Visual tanner are full to confrontation. Extraocular movements intact no nystagmus no facial weakness. Motor: The strength over the right side is 5 out of 5. The left side is 4. Sensation is normal to touch throughout - Labs CBC & Chem 7: 02/04/25 04:22 02/04/25 04:22 Labs: Abnormal Lab Results - Last 24 Hours (Table) 02/04/25 02/04/25 02/05/25 Range/Units 17:45 20:22 05:57 POC Glucose (mg/dL) 195 H 180 H 162 H (70-110) mg/dL 02/05/25 Range/Units 12:22 POC Glucose (mg/dL) 292 H (70-110) mg/dL Microbiology - Last 24 Hours (Table) 02/02/25 17:04 Blood Culture - Preliminary Blood Assessment and Plan Assessment: Acute to subacute ischemic stroke of medial left temporal lobe and right nick with left hemiparesis, vertigo, nausea vomiting, dysarthria. Patient also has recent history of transient complete hearing loss. Long-standing history of recurrent vertigo off and on for last 25 years. Chronic hearing loss Hyperlipidemia Diabetes Hypertension History of back surgery 2 Acid reflux disease Plan: Patient's current NIH stroke scale is 4. Patient not a candidate for TNK, as her symptoms have been present for 2 days prior to arrival. No large vessel occlusion noted on CTA. CTA of head and neck revealed no evidence of dissection of the cervical internal carotid arteries or vertebral arteries. No evidence of significant stenosis at the carotid bifurcations. No evidence of intracranial high-grade stenosis or intracranial aneurysm. Hypoplastic right A1 segment. Diminutive left intracranial vertebral artery. The left vertebral artery may terminate as the posterior inferior cerebellar artery Brain MRI shows acute/subacute CVA involving the medial left temporal lobe, multiple foci of restricted diffusion within the right nick also compatible with acute/subacute CVA, correlate for embolic phenomenon Carotid Doppler revealed less than 50% stenosis of bilateral carotid bifurcation. Antegrade flow in both vertebral arteries. Pending 2-D echo with bubble study to rule out PFO. If negative consider transesophageal echocardiogram. Fasting a.m. lipid panel: TG 232, cholestrol 194, LDL 119 and HDL 27. Recommend LDL <70 in stroke. Continue lipitor 80mg qhs. Continue aspirin 325 mg daily. Patient has very sensitive stomach therefore for now we will keep her on monotherapy with aspirin. I spoke with the patient daughter and she felt she was in an agreement for only monotherapy and to avoid dual antiplatelet especially with her GI symptoms and her age. Continue Protonix 40 mg IV push twice a day for gastric ulcer prophylaxis. Hemoglobin A1c 8.5, suggestive of poorly controlled diabetes. Recommend optimize control of diabetes to target A1c < 7.0. Continue meclizine and Zofran. Recommend normotensive. Neuro checks every 4 hours. Telemetry monitoring rule out any arrhythmia. Recommend 30-day event monitor PT, OT, speech therapy are consulted DVT prophylaxis: Heparin 5000 units subcu every 12 hours Dictation was produced using [employer] dictation software. please excuse any grammatical, word or spelling errors. Dalia Segura MD PGY-2 IM I personally examined the patient and discussed the case with the resident. I agree with assessment and plan of resident. Jin Mitchell M.D. Time with Patient: Less than 30
[2025-02-05 20:30] LABS: Glucose,Whole Blood 183 mg/dL (70-110)
[2025-02-06 05:47] LABS: Glucose,Whole Blood 155 mg/dL (70-110)
[2025-02-06 08:29] LABS: Basophils # (A) 0.07 X 10*3/uL (0.00-0.10); Basophils % (A) 1.0 %; Eosinophils # (A) 0.10 X 10*3/uL (0.04-0.35); Eosinophils % (A) 1.4 %; HCT 39.1 % (37.2-46.3); HGB 12.7 g/dL (12.0-15.0); Immature Grans, Automated 0.70 %; Lymphocytes # (A) 3.46 X 10*3/uL (0.90-5.00); Lymphocytes % (A) 48.3 %; MCH 29.5 pg (27.0-32.0); MCHC 32.5 g/dL (32.0-37.0); MCV 90.9 FL (80.0-97.0); Monocytes # (A) 0.96 X 10*3/uL (0.20-1.00); Monocytes % (A) 13.4 %; NRBC Per 100 WBC 0 X 10*3/uL (0.00-0.01); Neutrophils # (A) 2.52 X 10*3/uL (1.80-7.70); Neutrophils % (A) 35.2 %; Platelet Count 233 X 10*3/uL (140-440); RBC 4.30 X 10*6/uL (4.10-5.20); RDW 13.5 % (11.5-14.5); WBC 7.16 X 10*3/uL (4.50-10.00)
[2025-02-06 08:36] LABS: Anion Gap 10.50 mmol/L (4.00-12.00); BUN/Creat Ratio 16.00 Ratio (12.00-20.00); Blood Urea Nitrogen 12.8 mg/dL (9.0-27.0); Calcium 10.5 mg/dL (8.7-10.3); Carbon Dioxide 18.5 mmol/L (21.6-31.8); Chloride 110 mmol/L (96-109); Glucose 189 mg/dL (70-110); Magnesium 1.6 mg/dL (1.5-2.4); Potassium 4.1 mmol/L (3.5-5.5); Sodium 139 mmol/L (135-145)
[2025-02-06] MEDS: ACETAMINOPHEN TAB 500 MG TAB PO PRN (09:32)
--- NOTE | 2025-02-06 09:35 | P.PN ---
Subjective Progress Note Date: 02/05/25 This is an 84-year-old female admitted with significant dizziness and also change in mental status with generalized weakness. Neurology following with concerns of CVA and is scheduled to undergo MRI today. Patient is afebrile with no reports of chest pain or shortness of breath. Patient does have occasional nausea and will continue supportive care. Awaiting PT/OT therapy evaluation as well. 02/05/2025 Patient is seen in follow-up today with daughter at the bedside being followed by neurology. Patient on MRI was noted after further review with radiologist that there was multiple foci of restricted diffusion within the right nick and also compatible with acute/subacute CVA given different locations in 2 vascular distributions to correlate for embolic phenomenon. Patient also is continued on subcu heparin for DVT prophylaxis along with aspirin and will continue. 2D echo is ordered from 02/02/2025 and is pending at this time. Will consult cardiology for possible EVE need and appreciate input and recommendations. Patient reports continues with weakness and is working on possible going to ECF on discharge. Patient and family are agreeable with this and working on possible [place]. P atient is afebrile with no reports of chest pain or shortness of breath. Patient is tolerating diet and would recommend aspiration precautions and head of the bed elevated 45 degrees at all times while eating as patient is significantly weak. Review of systems: Constitutional: No reports of fatigue, fever, or chills Cardiovascular: No reports of chest pain or palpitations Respiratory: No reports of shortness of breath or cough GI: reports of occasional nausea, no reports of vomiting, no diarrhea, not much of an appetite : No reports of dysuria or retention Neurovascular: reports of generalized weakness, reports continued dizziness intermittently All medications have been reviewed PHYSICAL EXAMINATION: GENERAL: The patient is alert and oriented x3, Well developed, elderly appea ring, ill-appearing HEENT: Pupils are round and equally reacting to light. EOMI. no scleral icterus. No conjunctival pallor. Normocephalic, atraumatic. No pharyngeal erythema. No thyromegaly. CARDIOVASCULAR: S1 and S2 muffled PULMONARY: diminished breath sounds bilaterally with no wheezing or rhonchi noted. ABDOMEN: soft. Nontender on exam. non-distended, normoactive bowel sounds. No palpable organomegaly. MUSCULOSKELETAL: No joint swelling or deformity. EXTREMITIES: No cyanosis, clubbing, or pedal edema. NEUROLOGICAL: Gross neurological examination did not reveal any focal deficits. Diffuse weakness SKIN: No rashes. Assessment: Intractable dizziness, secondary to CVA as determined on MRI with multiple foci of restricted diffusion within the right nick consistent with acute/subacute CVA with different locations in 2 vascular distributions and a correlate for possible embolic phenomenon Dehydration secondary to poor oral intake Hypokalemia, improved after replacement Hypertension, accelerated on admission Diabetes mellitus, type II Degenerative joint disease history History of PE Sjogren syndrome Generalized weakness and gait dysfunction likely secondary to CVA GI prophylaxis DVT prophylaxis No code Plan: Recommend to continue with current medications and management with neurology following and confirmed stroke on the MRI. 2D echo remains pending from order date 02/02/2025 Will consult cardiology and appreciate input and recommendations for the possible need of EVE Continue with supportive care and antinausea medications Recommend PT/OT therapy evaluation and recommend daily as patient will likely need ECF and is now agreeable with family at bedside. Case management/social work working on possible [place] and will require insurance authorization Continue monitoring Accu-Cheks AC and at bedtime and will continue with current sliding scale insulin regimen and adjust accordingly Due to multiple complex medical issues, overall prognosis is guarded The impression and plan of care has been dictated by Cris Lester, nurse practitioner as directed. Dr. Aldo MD I have performed a history and examination and MDM of this patient, discussed the same with the dictator, and agree with the dictator's assessment and plan as written ,documented as a scribe. Based on total visit time, I have performed more than 50% of the visit. Any additional findings or plans will be noted. Objective - Vital Signs Vital signs: Vital Signs Temp 98.3 F 02/06/25 07:00 Pulse 75 02/06/25 07:00 Resp 16 02/06/25 07:00 BP 192/72 02/06/25 07:00 Pulse Ox 98 02/06/25 07:00 FiO2 Intake & Output 02/05/25 02/06/25 02/06/25 18:59 06:59 18:59 Intake Total 100 Output Total 900 1700 Balance -800 -1700 Intake: Oral 100 Output: Urine 900 1700 Other: Voiding Method External Catheter - Labs CBC & Chem 7: 02/06/25 04:38 02/06/25 04:38 Labs: Abnormal Lab Results - Last 24 Hours (Table) 02/05/25 02/05/25 02/06/25 Range/Units 12:22 20:28 04:38 MPV 12.8 H (9.5-12.2) FL Immature Gran # 0.05 H (0.00-0.04) X 10*3/uL Chloride (96-109) mmol/L Carbon Dioxide (21.6-31.8) mmol/L Glucose (70-110) mg/dL POC Glucose (mg/dL) 292 H 183 H (70-110) mg/dL Calcium (8.7-10.3) mg/dL 02/06/25 02/06/25 Range/Units 04:38 05:46 MPV (9.5-12.2) FL Immature Gran # (0.00-0.04) X 10*3/uL Chloride 110 H (96-109) mmol/L Carbon Dioxide 18.5 L (21.6-31.8) mmol/L Glucose 189 H (70-110) mg/dL POC Glucose (mg/dL) 155 H (70-110) mg/dL Calcium 10.5 H (8.7-10.3) mg/dL Microbiology - Last 24 Hours (Table) 02/02/25 17:04 Blood Culture - Preliminary Blood
[2025-02-06] MEDS ORDERED: fentaNYL (PF) 50 MCG/ML 2 ML AMP IVP PRN (09:47)
[2025-02-06] MEDS ORDERED: MIDAZOLAM 2 MG/2 ML VIAL IV PRN (09:47)
[2025-02-06] MEDS ORDERED: BENZOCAINE SPRAY 1 EACH MM PRN (09:47)
--- NOTE | 2025-02-06 12:08 | P.CRDCN ---
History of Present Illness History of present illness: HISTORY OF PRESENT ILLNESS: This is a 84-year-old female with a past medical history significant for hypertension, diabetes, GERD. 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 We have been asked to see the patient in consultation for EVE. Patient examined at the bedside. Multiple family numbers are present. Patient was brought to the hospital secondary to dizziness and vomiting. Patient denied having any chest pain or pressure. She denied any shortness of breath. She underwent MRI of the brain revealing acute/subacute CVA. DIAGNOSTICS: - EKG reveals sinus mechanism with no signs of acute ischemia. - Carotid Doppler: Less than 50% stenosis bilaterally -MRI of the brain acute/subacute CVA involving medial left temporal lobe. Addendum noted by radiologist revealing multiple foci of restricted diffusion within the right nick. - Laboratory data: - Current home cardiac medications include carvedilol 3.125 mg twice a day, amlodipine 5 mg at night, lisinopril 40 mg at night. REVIEW OF SYSTEMS: At the time of my exam: CONSTITUTIONAL: Denies fever or chills. HEENT: Denies blurred vision, vision changes, or eye pain. Denies hemoptysis CARDIOVASCULAR: Denies chest pain. Denies orthopnea. Denies PND. Denies palpitations RESPIRATORY: Denies shortness of breath. GASTROINTESTINAL: Denies abdominal pain. Denies nausea or vomiting. HEMATOLOGIC: Denies bleeding disorders. GENITOURINARY: Denies any blood in urine. SKIN: Denies pruitis. Denies rash. PHYSICAL EXAM: VITAL SIGNS: Reviewed. GENERAL: Well-developed in no acute distress. HEENT: Head is normocephalic. Pupils are equal, round. Sclerae anicteric. Mucous membranes of the mouth are moist. Neck supple. No JVD or thyromegaly LUNGS: Respirations even and unlabored. Lungs essentially clear to auscultation bilaterally. HEART: Regular rate and rhythm. S1 and S2 heard. ABDOMEN: Soft. Nondistended. Nontender. EXTREMITIES: Normal range of motion. No clubbing or cyanosis. Peripheral pulses intact. No lower extremity edema NEUROLOGIC: Awake and alert. Oriented x 3. ASSESSMENT: Acute/subacute CVA Hypertension Diabetes GERD History of vertigo PLAN: Continue aspirin per neurology. Patient's daughter has elected to only have monotherapy due to patient having a " sensitive stomach" Continue high intensity statin Discussed EVE with multiple family members at the bedside. Family members reports that patient has a history of difficulty with anesthesia and also difficulty swallowing. They have declined to undergo EVE at this time. Await results of 2D echo Further recommendations pending patient course Nurse practitioner note has been reviewed by physician. Signing provider agrees with the documented findings, assessment, and plan of care documented by QA AUTOMATION DEVELOPER as a scribe. Past Medical History Past Medical History: Diabetes Mellitus, Eye Disorder, GERD/Reflux, Hypertension, Osteoarthritis (OA), Pulmonary Embolus (PE) Additional Past Medical History / Comment(s): Shogren's, tremors, hx of pneumonia or bronchitis in Aug 2016. bilat eye cataract. Thin skin that bruises very easily, finishing antibiotic today for recent UTI, low back pain down left leg especially w/standing History of Any Multi-Drug Resistant Organisms: None Reported Past Surgical History: Back Surgery, Tubal Ligation Additional Past Surgical History / Comment(s): bilat cataract surgery. Past Anesthesia/Blood Transfusion Reactions: Postoperative Nausea & Vomiting (PONV) Past Psychological History: Anxiety Smoking Status: Never smoker Past Alcohol Use History: None Reported Past Drug Use History: None Reported - Past Family History Mother Family Medical History: Diabetes Mellitus, Hyperlipidemia, Myocardial Infarction ([place]) Father Family Medical History: Cancer Additional Family Medical History / Comment(s): SKIN CANCER Daughter(s) Family Medical History: Cancer Additional Family Medical History / Comment(s): Breast Cancer Medications and Allergies Home Medications Medication Instructions Recorded Confirmed Type Docusate [Colace] 200 mg PO DAILY PRN 09/20/17 02/02/25 History Melatonin [Melatonin Tr] 10 mg PO HS 09/20/17 02/02/25 History lisinopriL 40 mg PO HS 09/20/17 02/02/25 History Meclizine [Antivert] 12.5 mg PO TID PRN 03/27/20 02/02/25 History amLODIPine [Norvasc] 5 mg PO HS 03/27/20 02/02/25 History carvediloL [Coreg] 3.125 mg PO BID 03/27/20 02/02/25 History Cetirizine HCl [Zyrtec] 10 mg PO HS 04/08/20 02/02/25 History Acetaminophen [Tylenol Arthritis] 1,300 mg PO Q6H PRN 02/02/25 02/02/25 History Albuterol Inhaler [Ventolin Hfa 2 puff INHALATION RT-Q4H PRN 02/02/25 02/02/25 History Inhaler] Cholecalciferol [Vitamin D3 (25 75 mcg PO DAILY 02/02/25 02/02/25 History Mcg = 1000 Iu)] Cranberry Fruit Extract [Cranberry] 500 mg PO HS 02/02/25 02/02/25 History Diclofenac Sodium Gel [Voltaren 1% 1 applic TOPICAL QID PRN 02/02/25 02/02/25 History Gel] Famotidine 40 mg PO HS 02/02/25 02/02/25 History Ibuprofen [Motrin Ib] 400 mg PO Q6H PRN 02/02/25 02/02/25 History Lansoprazole [Prevacid 24Hr OTC] 30 mg PO DAILY 02/02/25 02/02/25 History Magnesium Oxide [Mag-Ox] 400 mg PO HS 02/02/25 02/02/25 History PARoxetine HCL 15 mg PO DAILY 02/02/25 02/02/25 History Pseudoephedrine 12Hr [Sudafed 12 120 mg PO Q12HR PRN 02/02/25 02/02/25 History Hour] Sennosides [Senokot] 8.6 mg PO DAILY PRN 02/02/25 02/02/25 History Turmeric Root Extract [Turmeric] 750 mg PO DAILY 02/02/25 02/02/25 History Vitamin C With Zinc 1,000mg/15mg 1 tab PO DAILY 02/02/25 02/02/25 History bisacodyL [Dulcolax] 10 mg RECTAL DAILY PRN 02/02/25 02/02/25 History guaiFENesin SYRUP 100MG/5ML 200 mg PO Q4H PRN 02/02/25 02/02/25 History [Robitussin] guaiFENesin [Mucinex] 600 mg PO Q12H PRN 02/02/25 02/02/25 History lidocaine HCL [Icy Hot Max] 1 applic TOPICAL QID PRN 02/02/25 02/02/25 History metFORMIN HCL [metFORMIN HCL ER] 750 mg PO HS 02/02/25 02/02/25 History Allergies Allergy/AdvReac Type Severity Reaction Status Date / Time sulfamethoxazole Allergy Unknown Nausea & Verified 02/02/25 17:10 [From Bactrim] Vomiting trimethoprim [From Bactrim] Allergy Unknown Nausea & Verified 02/02/25 17:10 Vomiting Tetracyclines Allergy Nausea & Verified 02/02/25 17:10 Vomiting amoxicillin trihydrate AdvReac Nausea & Verified 02/02/25 17:10 [From Augmentin] Vomiting azithromycin [From Zithromax] AdvReac Nausea & Verified 02/02/25 17:10 Vomiting codeine AdvReac Nausea & Verified 02/02/25 17:10 Vomiting potassium clavulanate AdvReac Nausea & Verified 02/02/25 17:10 [From Augmentin] Vomiting tetracycline AdvReac Nausea & Verified 02/02/25 17:10 Vomiting tramadol AdvReac Nausea & Verified 02/02/25 17:10 Vomiting Physical Exam Vitals: Vital Signs Temp Pulse Resp BP Pulse Ox 02/06/25 07:00 98.3 F 75 16 192/72 98 02/06/25 01:37 98.2 F 82 16 172/81 100 02/05/25 19:57 98.0 F 91 18 163/94 99 02/05/25 14:17 97.7 F 83 17 167/92 96 Intake and Output 02/05/25 02/06/25 02/06/25 22:59 06:59 14:59 Intake Total 100 Output Total 300 1400 Balance -200 -1400 Intake: Oral 100 Output: Urine 300 1400 Other: Voiding Method External Catheter Results 02/06/25 04:38 02/06/25 04:38 CBC 02/06/25 Range/Units 04:38 WBC 7.16 (4.50-10.00) X 10*3/uL RBC 4.30 (4.10-5.20) X 10*6/uL Hgb 12.7 (12.0-15.0) g/dL Hct 39.1 (37.2-46.3) % Plt Count 233 (140-440) X 10*3/uL Comprehensive Metabolic Panel 02/06/25 Range/Units 04:38 Sodium 139 (135-145) mmol/L Potassium 4.1 (3.5-5.5) mmol/L Chloride 110 H (96-109) mmol/L Carbon Dioxide 18.5 L (21.6-31.8) mmol/L BUN 12.8 (9.0-27.0) mg/dL Creatinine 0.8 (0.6-1.5) mg/dL Glucose 189 H (70-110) mg/dL Calcium 10.5 H (8.7-10.3) mg/dL Current Medications Generic Name Dose Route Start Last Admin Trade Name Freq PRN Reason Stop Dose Admin Acetaminophen 1,000 mg 02/03/25 15:48 02/06/25 09:32 Acetaminophen Tab 500 Mg Tab PO 1,000 mg Q6H PRN Administration Pain or Fever > 100.5 Albuterol Sulfate 2.5 mg 02/03/25 15:48 Albuterol Nebulized 2.5 Mg/3 Ml INHALATION RT-Q4H PRN Shortness Of Breath Aspirin 325 mg 02/04/25 09:00 02/06/25 09:34 Aspirin 325 Mg Tab PO 325 mg DAILY PATRICIA Administration Atorvastatin Calcium 80 mg 02/03/25 21:00 02/05/25 20:57 Atorvastatin 80 Mg Tab PO 80 mg HS PATRICIA Administration Benzocaine 1 each 02/06/25 09:47 Benzocaine [place] 1 Each MM 02/07/25 03:47 TID PRN Skin Irritation Carvedilol 3.125 mg 02/02/25 17:30 02/06/25 09:34 Carvedilol 3.125 Mg Tab PO 3.125 mg BID-W/MEALS PATRICIA Administration Dextrose/Water 25 ml 02/02/25 16:30 Dextrose 50% Syringe 50 Ml IVP PER PROTOCOL PRN Hypoglycemia Protocol Dextrose/Water 50 ml 02/02/25 16:30 Dextrose 50% Syringe 50 Ml IVP PER PROTOCOL PRN Hypoglycemia Protocol Diphenhydramine HCl 12.5 mg 02/02/25 16:31 Diphenhydramine 50 Mg/Ml 1 Ml Vial IVP Q6HR PRN Allergy Symptoms Fentanyl Citrate 50 mcg 02/06/25 09:47 Fentanyl (Pf) 50 Mcg/Ml 2 Ml Amp IVP 02/07/25 03:47 ONCE PRN Pre-Op Heparin Sodium (Porcine) 5,000 unit 02/02/25 21:00 02/06/25 09:35 Heparin Sodium,Porcine 5,000 Unit/Ml 1 Ml Vial SQ 5,000 unit Q12HR PATRICIA Administration Hydralazine HCl 10 mg 02/02/25 16:30 02/03/25 08:37 Hydralazine Hcl 20 Mg/Ml 1 Ml Vial IVP 10 mg Q4HR PRN Administration Blood Pressure - High Potassium Chloride/Sodium Chloride 1,000 mls @ 75 mls/hr 02/03/25 16:15 02/06/25 10:00 Ns-Kcl 40 Meq/L Iv Solution IV Not Given .[id number] PATRICIA Insulin Human Lispro 0 unit 02/02/25 17:30 02/06/25 06:26 Insulin Lispro (Humalog) 100 Unit/Ml 10 Ml Vl SQ 1 unit ACHS PATRICIA Administration Protocol Lisinopril 40 mg 02/02/25 21:00 02/05/25 20:57 Lisinopril 20 Mg Tab PO 40 mg HS PATRICIA Administration Magnesium Oxide 400 mg 02/03/25 21:00 02/05/25 20:57 Magnesium Oxide 400 Mg Tab PO 400 mg HS PATRICIA Administration Meclizine HCl 25 mg 02/02/25 15:36 Meclizine 25 Mg Tab PO TID PRN Vertigo Meclizine HCl 25 mg 02/02/25 16:30 02/06/25 09:35 Meclizine 25 Mg Tab PO 25 mg TID PATRICIA Administration Midazolam HCl 1 mg 02/06/25 09:47 Midazolam 2 Mg/2 Ml Vial IV 02/07/25 03:47 ONCE PRN Pre-Op Miscellaneous Information 1 each 02/03/25 12:40 Potassium Replacement Protocol 1 Each Misc MISCELLANE DAILY PRN Per Protocol Protocol Naloxone HCl 0.2 mg 02/02/25 15:34 Naloxone 0.4 Mg/Ml 1 Ml Vial IV Q2M PRN Opioid Reversal Ondansetron HCl 4 mg 02/02/25 15:34 02/03/25 10:56 Ondansetron 4 Mg/2 Ml Vial IVP 4 mg Q8HR PRN Administration Nausea And Vomiting Pantoprazole Sodium 40 mg 02/02/25 16:30 02/06/25 09:35 Pantoprazole 40 Mg/10 Ml Vial IVP 40 mg BID PATRICIA Administration Senna 8.6 mg 02/03/25 15:48 Sennosides 8.6 Mg Tab PO DAILY PRN Constipation Intake and Output 02/05/25 02/06/25 02/06/25 22:59 06:59 14:59 Intake Total 100 Output Total 300 1400 Balance -200 -1400 Intake: Oral 100 Output: Urine 300 1400 Other: Voiding Method External Catheter 02/06/25 04:38 02/06/25 04:38
[2025-02-06 12:12] LABS: Glucose,Whole Blood 236 mg/dL (70-110)
[2025-02-06] MEDS: amLODIPine 10 MG TAB PO SCH (13:58)
--- NOTE | 2025-02-06 14:16 | P.PN ---
Subjective Progress Note Date: 02/06/25 Principal diagnosis: Patient seen and examined at bedside today. She still complains of dizziness and reports her left side is weak. Blood pressure today 170/86 Objective - Vital Signs Vital signs: Vital Signs Temp 98.3 F 02/06/25 07:00 Pulse 75 02/06/25 07:00 Resp 16 02/06/25 07:00 BP 192/72 02/06/25 07:00 Pulse Ox 98 02/06/25 07:00 FiO2 Intake & Output 02/05/25 02/06/25 02/06/25 18:59 06:59 18:59 Intake Total 100 Output Total 900 1700 Balance -800 -1700 Intake: Oral 100 Output: Urine 900 1700 Other: Voiding Method External Catheter - Exam General: Laying in bed and is not in acute distress. Neuro: Patient is awake alert oriented to self place and time. Is following simple commands. No aphasia Equal reactive to light. Visual tanner are full to confrontation. Extraocular movements intact no nystagmus no facial weakness. Motor: The strength over the right side is 5 out of 5. The left side is 4. Sensation is normal to touch throughout - Labs CBC & Chem 7: 02/06/25 04:38 02/06/25 04:38 Labs: Abnormal Lab Results - Last 24 Hours (Table) 02/05/25 02/05/25 02/06/25 Range/Units 12:22 20:28 04:38 MPV 12.8 H (9.5-12.2) FL Immature Gran # 0.05 H (0.00-0.04) X 10*3/uL Chloride (96-109) mmol/L Carbon Dioxide (21.6-31.8) mmol/L Glucose (70-110) mg/dL POC Glucose (mg/dL) 292 H 183 H (70-110) mg/dL Calcium (8.7-10.3) mg/dL 02/06/25 02/06/25 Range/Units 04:38 05:46 MPV (9.5-12.2) FL Immature Gran # (0.00-0.04) X 10*3/uL Chloride 110 H (96-109) mmol/L Carbon Dioxide 18.5 L (21.6-31.8) mmol/L Glucose 189 H (70-110) mg/dL POC Glucose (mg/dL) 155 H (70-110) mg/dL Calcium 10.5 H (8.7-10.3) mg/dL Microbiology - Last 24 Hours (Table) 02/02/25 17:04 Blood Culture - Preliminary Blood Assessment and Plan Assessment: Acute to subacute ischemic stroke of medial left temporal lobe and right nick with left hemiparesis, vertigo, nausea vomiting, dysarthria. Patient also has recent history of transient complete hearing loss. Long-standing history of recurrent vertigo off and on for last 25 years. Chronic hearing loss Hyperlipidemia Diabetes Hypertension History of back surgery 2 Acid reflux disease Plan: Patient's current NIH stroke scale is 4. Patient not a candidate for TNK, as her symptoms have been present for 2 days prior to arrival. No large vessel occlusion noted on CTA. CTA of head and neck revealed no evidence of dissection of the cervical internal carotid arteries or vertebral arteries. No evidence of significant stenosis at the carotid bifurcations. No evidence of intracranial high-grade stenosis or intracranial aneurysm. Hypoplastic right A1 segment. Diminutive left intracranial vertebral artery. The left vertebral artery may terminate as the posterior inferior cerebellar artery Brain MRI shows acute/subacute CVA involving the medial left temporal lobe, multiple foci of restricted diffusion within the right nick also compatible with acute/subacute CVA, correlate for embolic phenomenon Carotid Doppler revealed less than 50% stenosis of bilateral carotid b ifurcation. Antegrade flow in both vertebral arteries. Pending 2-D echo with bubble study to rule out PFO. If negative consider transesophageal echocardiogram. EVE was ordered but family wants to wait until we get echo results to see if patient need EVE. Fasting a.m. lipid panel: TG 232, cholestrol 194, LDL 119 and HDL 27. Recommend LDL <70 in stroke. Continue lipitor 80mg qhs. Continue aspirin 325 mg daily. Patient has very sensitive stomach therefore for now we will keep her on monotherapy with aspirin. I spoke with the patient daughter and she felt she was in an agreement for only monotherapy and to avoid dual antiplatelet especially with her GI symptoms and her age. Continue Protonix 40 mg IV push twice a day for gastric ulcer prophylaxis. Hemoglobin A1c 8.5, suggestive of poorly controlled diabetes. Recommend optimize control of diabetes to target A1c < 7.0. Continue meclizine and Zofran. Recommend normotensive Neuro checks every 4 hours. Telemetry monitoring rule out any arrhythmia. Recommend 30-day event monitor OT recommends ROBY upon discharge DVT prophylaxis: Heparin 5000 units subcu every 12 hours Dictation was produced using [employer] dictation software. please excuse any grammatical, word or spelling errors. Dalia Segura MD PGY-2 IM I personally examined the patient and reviewed images. Pending 2D echo and if negative will pursue with EVE. I agree with the resident's Assessment and Plan. Jin Mitchell M.D. Time with Patient: Less than 30
[2025-02-06 17:24] LABS: Glucose,Whole Blood 198 mg/dL (70-110)
[2025-02-07 00:31] LABS: Glucose,Whole Blood 168 mg/dL (70-110)
--- NOTE | 2025-02-07 02:27 | P.PN ---
Subjective Progress Note Date: 02/06/25 This is an 84-year-old female admitted with significant dizziness and also change in mental status with generalized weakness. Neurology following with concerns of CVA and is scheduled to undergo MRI today. Patient is afebrile with no reports of chest pain or shortness of breath. Patient does have occasional nausea and will continue supportive care. Awaiting PT/OT therapy evaluation as well. 02/05/2025 Patient is seen in follow-up today with daughter at the bedside being followed by neurology. Patient on MRI was noted after further review with radiologist that there was multiple foci of restricted diffusion within the right nick and also compatible with acute/subacute CVA given different locations in 2 vascular distributions to correlate for embolic phenomenon. Patient also is continued on subcu heparin for DVT prophylaxis along with aspirin and will continue. 2D echo is ordered from 02/02/2025 and is pending at this time. Will consult cardiology for possible EVE need and appreciate input and recommendations. Patient reports continues with weakness and is working on possible going to ECF on discharge. Patient and family are agreeable with this and working on possible [place]. P atient is afebrile with no reports of chest pain or shortness of breath. Patient is tolerating diet and would recommend aspiration precautions and head of the bed elevated 45 degrees at all times while eating as patient is significantly weak. 02/06/2025 Patient is seen in follow-up today and cardiology has evaluated the patient and 2D echo remains pending. Discussion of possible EVE although family wants to avoid this if at all and awaiting echo to be read. Patient showing some improvements although continues with and will be going to ECF on discharge. Awaiting echo report and clearance from notations to determine discharge plan. Patient is afebrile denies chest pain or shortness of breath. Patient has been slowly tolerating diet and would recommend precautions. Encouraged to increase activity as tolerated and would recommend PT/OT therapy daily. Review of systems: Constitutional: No reports of fatigue, fever, or chills Cardiovascular: No reports of chest pain or palpitations Respiratory: No reports of shortness of breath or cough GI: reports of occasional nausea, no reports of vomiting, no diarrhea, not much of an appetite : No reports of dysuria or retention Neurovascular: reports of generalized weakness, reports continued dizziness intermittently All medications have been reviewed PHYSICAL EXAMINATION: GENERAL: The patient is alert and oriented x3, Well developed, elderly appearing, ill-appearing HEENT: Pupils are round and equally reacting to light. EOMI. no scleral icterus. No conjunctival pallor. Normocephalic, atraumatic. No pharyngeal erythema. No thyromegaly. CARDIOVASCULAR: S1 and S2 muffled PULMONARY: diminished breath sounds bilaterally with no wheezing or rhonchi noted. ABDOMEN: soft. Nontender on exam. non-distended, normoactive bowel sounds. No palpable organomegaly. MUSCULOSKELETAL: No joint swelling or deformity. EXTREMITIES: No cyanosis, clubbing, or pedal edema. NEUROLOGICAL: Gross neurological examination did not reveal any focal deficits. Diffuse weakness SKIN: No rashes. Assessment: Intractable dizziness, secondary to CVA as determined on MRI with multiple foci of restricted diffusion within the right nick consistent with acute/subacute CVA with different locations in 2 vascular distributions and a correlate for possible embolic phenomenon Dehydration secondary to poor oral intake Hypokalemia, improved after replacement Hypertension, accelerated on admission Diabetes mellitus, type II Degenerative joint disease history History of PE Sjogren syndrome Generalized weakness and gait dysfunction likely secondary to CVA GI prophylaxis DVT prophylaxis No code Plan: Recommend to continue with current medications and management with neurology following and confirmed stroke on the MRI. 2D echo remains pending from order date 02/02/2025, was performed today and pending final read Cardiology and has evaluated the patient with no plans of EVE at this time and awaiting echo. Patient and family do not want the EVE Continue with supportive care and antinausea medications Recommend PT/OT therapy evaluation and recommend daily as patient will likely need ECF and is now agreeable with family at bedside. Case management/social work working on possible [place] and will require insurance authorization Continue monitoring Accu-Cheks AC and at bedtime and will continue with current sliding scale insulin regimen and adjust accordingly Due to multiple complex medical issues, overall prognosis is guarded The impression and plan of care has been dictated by Cris Lester nurse practitioner as directed. Dr. Aldo MD I have performed a history and examination and MDM of this patient, discussed the same with the dictator, and agree with the dictator's assessment and plan as written ,documented as a scribe. Based on total visit time, I have performed more than 50% of the visit. Any additional findings or plans will be noted. Objective - Vital Signs Vital signs: Vital Signs Temp 98.3 F 02/06/25 07:00 Pulse 75 02/06/25 07:00 Resp 16 02/06/25 07:00 BP 192/72 02/06/25 07:00 Pulse Ox 98 02/06/25 07:00 FiO2 Intake & Output 02/05/25 02/06/25 02/06/25 18:59 06:59 18:59 Intake Total 100 Output Total 900 1700 Balance -800 -1700 Intake: Oral 100 Output: Urine 900 1700 Other: Voiding Method External Catheter - Labs CBC & Chem 7: 02/06/25 04:38 02/06/25 04:38 Labs: Abnormal Lab Results - Last 24 Hours (Table) 02/05/25 02/05/25 02/06/25 Range/Units 12:22 20:28 04:38 MPV 12.8 H (9.5-12.2) FL Immature Gran # 0.05 H (0.00-0.04) X 10*3/uL Chloride (96-109) mmol/L Carbon Dioxide (21.6-31.8) mmol/L Glucose (70-110) mg/dL POC Glucose (mg/dL) 292 H 183 H (70-110) mg/dL Calcium (8.7-10.3) mg/dL 02/06/25 02/06/25 Range/Units 04:38 05:46 MPV (9.5-12.2) FL Immature Gran # (0.00-0.04) X 10*3/uL Chloride 110 H (96-109) mmol/L Carbon Dioxide 18.5 L (21.6-31.8) mmol/L Glucose 189 H (70-110) mg/dL POC Glucose (mg/dL) 155 H (70-110) mg/dL Calcium 10.5 H (8.7-10.3) mg/dL Microbiology - Last 24 Hours (Table) 02/02/25 17:04 Blood Culture - Preliminary Blood
[2025-02-07 06:23] LABS: Glucose,Whole Blood 171 mg/dL (70-110)
--- NOTE | 2025-02-07 07:40 | CA ---
Transthoracic Echo Report Name: Shadia Morales Age: 84 Gender: F : 1940 Exam Date: 02/06/2025 14:29 Exam Location: [facility] Ht (in): 63 Wt (lb): 150 Ordering Physician: Timo Carlson MD Attending/Referring Phys: Machine Filler Juana Persaud RDCS Procedure CPT: Indications: stroke Cardiac Hx: Technical Quality: Fair Contrast 1: Total Dose (mL): Contrast 2: Total Dose (mL): MEASUREMENTS (Male / Female) Normal Values 2D ECHO LV Diastolic Diameter PLAX 3.2 cm 4.2 - 5.9 / 3.9 - 5.3 cm LV Systolic Diameter PLAX 3.0 cm IVS Diastolic Thickness 1.0 cm 0.6 - 1.0 / 0.6 - 0.9 cm LVPW Diastolic Thickness 1.1 cm 0.6 - 1.0 / 0.6 - 0.9 cm LV Relative Wall Thickness 0.7 RV Internal Dim ED PLAX 2.6 cm LVOT Diameter 1.6 cm LA Systolic Diameter LX 4.3 cm 3.0 - 4.0 / 2.7 - 3.8 cm LV Diastolic Volume MOD BP 27.6 cm??? 67 - 155 / 56 - 104 cm??? LV Systolic Volume MOD BP 9.2 cm??? 22 - 58 / 19 - 49 cm??? LV Ejection Fraction MOD BP 66.8 % >= 55 % LV Cardiac Index MOD BP 860.9 cm???/min???m??? LV Diastolic Volume MOD 4C 34.5 cm??? LV Systolic Volume MOD 4C 9.9 cm??? LV Ejection Fraction MOD 4C 71.2 % LV Cardiac Index MOD 4C 1146.7 cm???/min???m??? LV Diastolic Length 4C 6.1 cm LV Systolic Length 4C 5.6 cm LV Diastolic Volume MOD 2C 22.2 cm??? LV Systolic Volume MOD 2C 7.9 cm??? LV Ejection Fraction MOD 2C 64.2 % LV Cardiac Index MOD 2C 665.3 cm???/min???m??? LV Diastolic Length 2C 6.2 cm LV Systolic Length 2C 5.2 cm LA Volume 58.7 cm??? 18 - 58 / 22 - 52 cm??? LA Volume Index 33.5 cm???/m??? 16 - 28 cm???/m??? M-MODE Aortic Root Diameter MM 3.0 cm LA Systolic Diameter MM 3.6 cm LA Ao Ratio MM 1.2 AV Cusp Separation MM 1.5 cm DOPPLER AI Peak Velocity 329.0 cm/s AI Peak Gradient 43.3 mmHg AI Pressure Half Time 494.5 ms MV Peak Velocity 174.1 cm/s MV Peak Gradient 12.1 mmHg MV Mean Velocity 97.9 cm/s MV Mean Gradient 4.5 mmHg MV Velocity Time Integral 36.5 cm MV Area PHT 2.5 cm??? Mitral E Point Velocity 93.4 cm/s Mitral A Point Velocity 165.6 cm/s Mitral E to A Ratio 0.6 MV Deceleration Time 307.3 ms TR Peak Velocity 244.6 cm/s TR Peak Gradient 23.9 mmHg FINDINGS Left Ventricle Left ventricular ejection fraction is estimated at 65-70 %. Mildly increased septal wall thickness. Mildly increased posterior wall thickness. Mild concentric left ventricular hypertrophy. Hyperdynamic left ventricular systolic function. Mid-Cavity gradient, 39 mmHg. Right Ventricle Normal right ventricular size and function. Right ventricular systolic pressure within normal limits. Right Atrium Mild right atrial dilatation. Left Atrium Moderately increased left atrial diameter. Mitral Valve Structurally normal mitral valve. Mild mitral regurgitation. No mitral stenosis. Aortic Valve Trileaflet aortic valve. Diffuse thickening (sclerosis) of the aortic valve cusps without reduced excursion. Mild aortic regurgitation. Tricuspid Valve Structurally normal tricuspid valve. Mild tricuspid regurgitation. No tricuspid stenosis. Pulmonic Valve Structurally normal pulmonic valve. Trace pulmonic regurgitation. No pulmonic stenosis. Pericardium No pericardial or pleural effusion. Aorta Normal size aortic root and proximal ascending aorta. CONCLUSIONS Normal LV function Previewed by: Dr. Reggie Meek MD (Electronically Signed) Final Date: 07 February 2025 07:39
[2025-02-07 12:41] LABS: Glucose,Whole Blood 167 mg/dL (70-110)
--- NOTE | 2025-02-07 13:18 | P.PN ---
Subjective HISTORY OF PRESENT ILLNESS: This is a 84-year-old female with a past medical history significant for hypertension, diabetes, GERD. Patient does not follow with a clinical applications manager. We have been asked to see the patient in consultation for EVE. Patient examined at the bedside. Multiple family numbers are present. Patient was brought to the hospital secondary to dizziness and vomiting. Patient denied having any chest pain or pressure. She denied any shortness of breath. She underwent MRI of the brain revealing acute/subacute CVA. DIAGNOSTICS: - EKG reveals sinus mechanism with no signs of acute ischemia. - Carotid Doppler: Less than 50% stenosis bilaterally -MRI of the brain acute/subacute CVA involving medial left temporal lobe. Jo francisco j noted by radiologist revealing multiple foci of restricted diffusion within the right nick. - Laboratory data: - Current home cardiac medications include carvedilol 3.125 mg twice a day, amlodipine 5 mg at night, lisinopril 40 mg at night. 02/07/2025 Patient examined this morning at bedside. Patient denies chest pain or pressure. She denies shortness of breath. Vital signs are stable. Echo cardiogram performed revealing ejection fraction 65 to 70%, hyperdynamic left ventricular systolic function, mid cavitary gradient 39 mmHg, mild MR, mild AI, mild TR. Vital signs are stable PHYSICAL EXAM: VITAL SIGNS: Reviewed. GENERAL: Well-developed in no acute distress. HEENT: Head is normocephalic. Pupils are equal, round. Sclerae anicteric. Mucous membranes of the mouth are moist. Neck supple. No JVD or thyromegaly LUNGS: Respirations even and unlabored. Lungs essentially clear to auscultation bilaterally. HEART: Regular rate and rhythm. S1 and S2 heard. ABDOMEN: Soft. Nondistended. Nontender. EXTREMITIES: Normal range of motion. No clubbing or cyanosis. Peripheral pulses intact. No lower extremity edema NEUROLOGIC: Awake and alert. Oriented x 3. ASSESSMENT: Acute/subacute CVA Hypertension Diabetes GERD History of vertigo PLAN: Continue aspirin per neurology. Patient's daughter has elected to only have monotherapy due to patient having a " sensitive stomach" Continue high intensity statin Discussed EVE with multiple family members at the bedside yesterday. Family members reports that patient has a history of difficulty with anesthesia and also difficulty swallowing. They have declined to undergo EVE at this time. 2D echo reviewed. No bubble study was performed at that time. Will obtain bubble study today Further recommendations pending patient course Nurse practitioner note has been reviewed by physician. Signing provider agrees with the documented findings, assessment, and plan of care documented by TOLL MECHANIC as a scribe. Objective - Vital Signs Vital signs: Vital Signs Temp 97.8 F 02/07/25 07:34 Pulse 90 02/07/25 07:34 Resp 17 02/07/25 07:34 BP 152/82 02/07/25 07:34 Pulse Ox 97 02/07/25 07:34 FiO2 Intake & Output 02/06/25 02/07/25 02/07/25 18:59 06:59 18:59 Intake Total 90 Output Total 1000 1150 550 Balance -1000 -1150 -460 Intake: Oral 90 Output: Urine 1000 1150 550 Other: Voiding Method External Catheter External Catheter # Voids 400 1 - Labs CBC & Chem 7: 02/06/25 04:38 02/06/25 04:38 Labs: Abnormal Lab Results - Last 24 Hours (Table) 02/06/25 02/07/25 02/07/25 Range/Units 17:22 00:30 06:21 POC Glucose (mg/dL) 198 H 168 H 171 H (70-110) mg/dL 02/07/25 Range/Units 12:37 POC Glucose (mg/dL) 167 H (70-110) mg/dL
[2025-02-07 13:53] VITALS: BMI 26.5
[2025-02-07 15:02] VITALS: BP 169/93; PULSE 91; RESP 16; TEMP 98.6
--- NOTE | 2025-02-07 15:42 | P.DS ---
Providers Date of admission: 02/02/25 15:35 Expected date of discharge: 02/07/25 Attending physician: Goyo Chaudhari MD Consults: 02/02/25 15:34 Consult Physician Urgent Consulting Provider: Stephen Almeida Consult Reason/Comments: intractable vertigo Do you want consulting provider notified?: Yes 02/05/25 10:50 Consult Physician Urgent Consulting Provider: Braydon Thomas Consult Reason/Comments: cva, need EVE Do you want consulting provider notified?: Yes Primary care physician: Monae Suarez Hospital Course: Final diagnosis Intractable dizziness, secondary to CVA as determined on MRI with multiple foci of restricted diffusion within the right nick consistent with acute/subacute CVA with different locations in 2 vascular distributions and a correlate for possible embolic phenomenon Dehydration secondary to poor oral intake Hypokalemia, improved after replacement Hypertension, accelerated on admission Diabetes mellitus, type II Degenerative joint disease history History of PE Sjogren syndrome Generalized weakness and gait dysfunction likely secondary to CVA GI prophylaxis DVT prophylaxis No code Discharge disposition Patient is being discharged in a stable condition with guarded prognosis to [facility]. Patient will follow-up with Dr. Suarez in the outpatient setting upon discharge. Patient is to continue with current medications and close outpatient follow-up with cardiology as well as neurology as scheduled. Total time taken is greater than 35 minutes. Hospital course This is a 84-year-old female who was recently admitted with intractable dizziness with generalized weakness and noted to have CVA with multiple foci of restricted diffusion within the right nick consistent with acute versus subacute CVA with 2 different locations and 2 vascular distributions to correlate for possible embolic phenomenon. Patient evaluated by neurology as well as cardiology underwent 2D echo which was within normal limits. Recommended possible EVE although patient and family are refusing at this time although agreeable with echo bubble study. Patient with significant weakness evaluated by physical therapy and patient and family are now agreeable to ECF. Patient has been accepted at [facility] and received insurance authorization. Patient will be discharged today with guarded prognosis and instructed to follow-up with cardiology as well as neurology outpatient. Currently no reports of chest pain, shortness of breath, or palpitations. Patient is afebrile. No reports of nausea or vomiting and patient is tolerating diet. Patient will be going to [facility] today. Guarded prognosis Physical exam: Gen: This is a 84-year-old female who is awake, alert and oriented x 2, well developed, elderly appearing HEENT: Head is atraumatic, normocephalic. Pupils equal, round. Sclerae is anicteric. NECK: Supple. No JVD. No lymphadenopathy. No thyromegaly. LUNGS: Diminished breath sounds bilaterally otherwise clear to auscultation. No wheezes or rhonchi. No intercostal retractions. HEART: S1, S2 are muffled ABDOMEN: Soft. Bowel sounds are present. No masses. No tenderness. EXTREMITIES: No pedal edema. No calf tenderness. NEUROLOGICAL: Patient is awake, alert and oriented x2. Cranial nerves 2 through 12 are grossly intact. Diffusely weak Please refer to medication reconciliation sheet for a list of medications. The impression and plan of care has been dictated by Cris Lester, Nurse Practitioner as directed. Dr. Aldo MD I have performed a history and examination and MDM of this patient, discussed the same with the dictator, and agree with the dictator's assessment and plan as written ,documented as a scribe. Based on total visit time, I have performed more than 50% of the visit. Patient Condition at Discharge: Stable Plan - Discharge Summary Discharge Rx Participant: No New Discharge Prescriptions: New Heparin Sodium,Porcine (1 ml) [Heparin Sodium] 5,000 unit SQ Q12HR each amLODIPine [Norvasc] 10 mg PO DAILY tab Meclizine [Antivert] 25 mg PO TID tab INSULIN LISPRO (HumaLOG) [HumaLOG] 0 unit SQ ACHS each Atorvastatin [Lipitor] 80 mg PO HS tab Aspirin 81 mg PO DAILY #30 tab Continue lisinopriL 40 mg PO HS Docusate [Colace] 200 mg PO DAILY PRN PRN Reason: Constipation Melatonin [Melatonin Tr] 10 mg PO HS carvediloL [Coreg] 3.125 mg PO BID Cetirizine HCl [Zyrtec] 10 mg PO HS PARoxetine HCL 15 mg PO DAILY metFORMIN HCL [metFORMIN HCL ER] 750 mg PO HS Famotidine 40 mg PO HS bisacodyL [Dulcolax] 10 mg RECTAL DAILY PRN PRN Reason: Constipation lidocaine HCL [Icy Hot Max] 1 applic TOPICAL QID PRN PRN Reason: Pain guaiFENesin [Mucinex] 600 mg PO Q12H PRN PRN Reason: Cough Magnesium Oxide [Mag-Ox] 400 mg PO HS Vitamin C With Zinc 1,000mg/15mg 1 tab PO DAILY Lansoprazole [Prevacid 24Hr OTC] 30 mg PO DAILY Albuterol Inhaler [Ventolin Hfa Inhaler] 2 puff INHALATION RT-Q4H PRN PRN Reason: Shortness Of Breath guaiFENesin SYRUP 100MG/5ML [Robitussin] 200 mg PO Q4H PRN PRN Reason: Cough Diclofenac Sodium Gel [Voltaren 1% Gel] 1 applic TOPICAL QID PRN PRN Reason: Pain Pseudoephedrine 12Hr [Sudafed 12 Hour] 120 mg PO Q12HR PRN PRN Reason: Congestion Acetaminophen [Tylenol Arthritis] 1,300 mg PO Q6H PRN PRN Reason: Pain Or Fever > 100.5 Ibuprofen [Motrin Ib] 400 mg PO Q6H PRN PRN Reason: Pain Or Fever > 100.5 Turmeric Root Extract [Turmeric] 750 mg PO DAILY Cranberry Fruit Extract [Cranberry] 500 mg PO HS Sennosides [Senokot] 8.6 mg PO DAILY PRN PRN Reason: Constipation Cholecalciferol [Vitamin D3 (25 Mcg = 1000 Iu)] 75 mcg PO DAILY Discontinued amLODIPine [Norvasc] 5 mg PO HS Meclizine [Antivert] 12.5 mg PO TID PRN PRN Reason: Vertigo Discharge Medication List Docusate [Colace] 200 mg PO DAILY PRN 09/20/17 [History] Melatonin [Melatonin Tr] 10 mg PO HS 09/20/17 [History] lisinopriL 40 mg PO HS 09/20/17 [History] carvediloL [Coreg] 3.125 mg PO BID 03/27/20 [History] Cetirizine HCl [Zyrtec] 10 mg PO HS 04/08/20 [History] Acetaminophen [Tylenol Arthritis] 1,300 mg PO Q6H PRN 02/02/25 [History] Albuterol Inhaler [Ventolin Hfa Inhaler] 2 puff INHALATION RT-Q4H PRN 02/02/25 [History] Cholecalciferol [Vitamin D3 (25 Mcg = 1000 Iu)] 75 mcg PO DAILY 02/02/25 [History] Cranberry Fruit Extract [Cranberry] 500 mg PO HS 02/02/25 [History] Diclofenac Sodium Gel [Voltaren 1% Gel] 1 applic TOPICAL QID PRN 02/02/25 [History] Famotidine 40 mg PO HS 02/02/25 [History] Ibuprofen [Motrin Ib] 400 mg PO Q6H PRN 02/02/25 [History] Lansoprazole [Prevacid 24Hr OTC] 30 mg PO DAILY 02/02/25 [History] Magnesium Oxide [Mag-Ox] 400 mg PO HS 02/02/25 [History] PARoxetine HCL 15 mg PO DAILY 02/02/25 [History] Pseudoephedrine 12Hr [Sudafed 12 Hour] 120 mg PO Q12HR PRN 02/02/25 [History] Sennosides [Senokot] 8.6 mg PO DAILY PRN 02/02/25 [History] Turmeric Root Extract [Turmeric] 750 mg PO DAILY 02/02/25 [History] Vitamin C With Zinc 1,000mg/15mg 1 tab PO DAILY 02/02/25 [History] bisacodyL [Dulcolax] 10 mg RECTAL DAILY PRN 02/02/25 [History] guaiFENesin SYRUP 100MG/5ML [Robitussin] 200 mg PO Q4H PRN 02/02/25 [History] guaiFENesin [Mucinex] 600 mg PO Q12H PRN 02/02/25 [History] lidocaine HCL [Icy Hot Max] 1 applic TOPICAL QID PRN 02/02/25 [History] metFORMIN HCL [metFORMIN HCL ER] 750 mg PO HS 02/02/25 [History] Aspirin 81 mg PO DAILY #30 tab 02/07/25 [Rx] Atorvastatin [Lipitor] 80 mg PO HS tab 02/07/25 [Rx] Heparin Sodium,Porcine (1 ml) [Heparin Sodium] 5,000 unit SQ Q12HR each 02/07/25 [Rx] INSULIN LISPRO (HumaLOG) [HumaLOG] 0 unit SQ ACHS each 02/07/25 [Rx] Meclizine [Antivert] 25 mg PO TID tab 02/07/25 [Rx] amLODIPine [Norvasc] 10 mg PO DAILY tab 02/07/25 [Rx] Follow up Appointment(s)/Referral(s): Berta Schmidt MD [REFERRING] - 1 Week Skaf,Braydon, MD [STAFF PHYSICIAN] - 1 Week Monae Suarez MD [Primary Care Provider] - 1-2 days Activity/Diet/Wound Care/Special Instructions: Patient is going to [facility] Activity tolerated Continue taking medications as prescribed Patient to follow-up with cardiology outpatient Follow-up with neurology outpatient Continue monitoring blood sugars AC and at bedtime and would use sliding scale NovoLog sliding scale 0-150 equals 0 units 151-200 equals 2 units 201-250 equals 4 units 251-300 equals 6 units 301-350 equals 8 units 351-400 equals 10 units Please notify provider if blood sugar is 400 or above Discharge Disposition: TRANSFER TO SNF/ECF
--- NOTE | 2025-02-07 19:02 | CA ---
Transthoracic Echo Report Name: Shadia Morales Age: 84 Gender: F : 1940 Exam Date: 02/07/2025 10:39 Exam Location: [facility] Ht (in): 63 Wt (lb): 150 Ordering Physician: Elizabeth Schneider Attending/Referring Phys: [id number], Jennie Industrial Hygiene Engineer Sandy Borja, MATTIE Procedure CPT: Indications: CVA, bubble study only Cardiac Hx: Limited for bubble study Technical Quality: Good Contrast 1: Total Dose (mL): Contrast 2: Total Dose (mL): MEASUREMENTS (Male / Female) Normal Values FINDINGS Left Ventricle Right Ventricle Right Atrium Negative agitated saline bubble study for right to left shunt. Left Atrium Mitral Valve Aortic Valve Tricuspid Valve Pulmonic Valve Pericardium Aorta CONCLUSIONS Negative bubble study Previewed by: Dr. Reggie Meek MD (Electronically Signed) Final Date: 07 February 2025 19:01
== END 2025-02-07 17:35 | DRG 65 ==
LOC: EC 11:55 → 6NMEDSUR 15:34 → OBSVTOIN 15:35 → 6NMEDSUR 16:50
PROVIDERS: ADMIT Internal Medicine; ATTEND Internal Medicine
DX: I63.89 Other cerebral infarction (principal); G81.94 Hemiplegia, unspecified affecting left nondominant side; E86.0 Dehydration; E11.9 Type 2 diabetes mellitus without complications; E78.5 Hyperlipidemia, unspecified; M35.00 Sjogren syndrome, unspecified; I10 Essential (primary) hypertension; Z79.4 Long term (current) use of insulin; R29.704 NIHSS score 4; R11.2 Nausea with vomiting, unspecified; H91.90 Unspecified hearing loss, unspecified ear; E87.6 Hypokalemia; K21.9 Gastro-esophageal reflux disease without esophagitis; R47.1 Dysarthria and anarthria; M19.90 Unspecified osteoarthritis, unspecified site; Z74.01 Bed confinement status; Z79.82 Long term (current) use of aspirin; Z79.84 Long term (current) use of oral hypoglycemic drugs; Z79.899 Other long term (current) drug therapy; Z86.711 Personal history of pulmonary embolism
CPT/HCPCS: 36415; 70450; 70496; 70498; 70553; 80048; 80053; 80061; 81001; 83036; 83605; 83735; 84484; 85025; 87040; 87086; 93005; 93306; 93308; 93880; 96361; 96374; 96375; 99285